=== PATIENT | female | born 1935 | race Caucasian/White ===

== ENCOUNTER 2016-09-18 14:22 | Inpatient (IN) ==
[2016-09-18] MEDS ORDERED: FUROSEMIDE 100 MG/10 ML VIAL IV STA (14:51)
[2016-09-18] MEDS ORDERED: FUROSEMIDE 100 MG/10 ML VIAL ONE (14:51)
--- NOTE | 2016-09-18 14:55 | EKG Report ---
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
[2016-09-18 15:41] LABS: Apearance,Urine Slightly Hazy (Clear); Bilirubin,Urine Negative (Negative); Blood, Urine Negative (Negative); Glucose,Urine (UA) Negative (Negative); Ketones,Urine Negative (Negative); Mucus,Urine Many /LPF (Occasional); Nitrite,Urine Negative (Negative); Protein,Urine 30 MG/DL; RBC,Urine 4 /HPF (0-4); Squamous Epithelial Cell,Urine Occasional /HPF (0-10); Urine Color Amber (Yellow); Urine Urobilinogen < 2.0 EU/DL (0.2-1.0); WBC,Urine 1 /HPF (0-6)
--- NOTE | 2016-09-18 15:50 | XRay Report ---
XR chest 1V portable Indication: SOB Comparison: Chest x-ray dated January 30, 2014 Technique: Single frontal view of the chest Findings: Continued cardiomegaly status post sternotomy with multiple surgical clips projecting about the heart/mediastinum. Low lung volumes are noted with bronchovascular crowding and continued elevation of the left hemidiaphragm. Suspect pulmonary edema as there are bilateral perihilar opacities. This alternatively could reflect atelectasis/bronchovascular crowding Small bilateral pleural fluid not excluded. Patient is status post reverse right glenohumeral prosthesis. IMPRESSION: As above. PROCEDURE INTERPRETED AT [facility] DEPARTMENT OF RADIOLOGY Final Report Signed by: Dr Tal Alves
--- NOTE | 2016-09-18 15:58 | Emergency Department Note ---
Emma Sweet Hilary, am scribing for, and in the presence of, Arian Bautista MD 14:51. Lily Sweet Phillip K, MD, personally performed the services described in this documentation, ascribed by Kristina Carter in my presence, and it is both accurate and complete [id number] . Arrival - Arrival ED Nursing Triage Note: Brought in by EMS c/o shortness of breath-onset earlier today. Reports some relief after Albuterol neb. Patient had shoulder surgery in [place] on Friday. Mode of Arrival: Stretcher Limitations: No Limitations Source: Patient, RN Notes Reviewed - History of Present Illness Onset (ago): hour(s) Date of Last Menstrual Period: hysterectomy <Arian Bautista - Last Filed: 09/18/16 15:58> <James Barillas - Last Filed: 09/18/16 17:52> - Arrival Chief Complaint: Shortness of Breath - History of Present Illness HPI Narrative: Pt is a 81 y/o white female brought into the ED via EMS with c/o of SOB which onset earlier today. Pt confirms SOB but denies swelling in legs, fever, cough, or chest pain. Pt has a PMHx of COPD and bypass x2. Patient had shoulder surgery in [place] on Friday. No other complaints or problems stated in the ED. (Kristina Carter) Pt is a 81 y/o white female brought into the ED via EMS with c/o of SOB which onset earlier today. Pt confirms SOB but denies swelling in legs, fever, cough, or chest pain. Pt has a PMHx of COPD and bypass x2. Patient had shoulder surgery in [place] on Friday. No other complaints or problems stated in the ED. (Arian Bautista) Allergies/Adverse Reactions: Allergies Allergy/AdvReac Type Severity Reaction Status Date / Time acetaminophen [From Lortab] Allergy Verified 12/07/15 10:26 codeine Allergy Verified 12/07/15 10:26 Diatrizoic Acid Allergy Verified 12/07/15 10:26 [From Hypaque] droperidol [From Innovar] Allergy Verified 12/07/15 10:26 fentanyl [From Innovar] Allergy Verified 12/07/15 10:26 hydrocodone [From Lortab] Allergy Verified 12/07/15 10:26 Hydromorphone [From Dilaudid] Allergy Verified 12/07/15 10:10 hydroxyzine [From Vistaril] Allergy Verified 12/07/15 10:26 iodine Allergy Verified 12/07/15 10:26 meperidine [From Demerol] Allergy Verified 12/07/15 10:10 methylene blue Allergy Verified 12/07/15 10:26 morphine Allergy Verified 12/07/15 10:26 nalbuphine [From Nubain] Allergy Verified 12/07/15 10:10 pentazocine [From Talwin] Allergy Verified 12/07/15 10:10 promethazine [From Phenergan] Allergy Verified 12/07/15 10:26 propoxyphene Allergy Verified 12/07/15 10:26 [From Darvocet-N 100] Trimethobenzamide Allergy Verified 12/07/15 10:26 [From Tigan] Home Medications: Home Medications Medication Instructions Recorded Confirmed Type Aspirin [Ecotrin] 81 mg PO QAM 12/07/15 09/18/16 History Beclomethasone 40 Mcg Inhaler 40 mcg INH BID 12/07/15 09/18/16 History [Qvar 40 Mcg] Donepezil [Aricept] 10 mg PO QAM 12/07/15 09/18/16 History Ezetimibe/Simvastatin 10-80 1 tablet PO BEDTIME 12/07/15 09/18/16 History [Vytorin 10-80] Loratadine [Claritin] 10 mg PO QPM 12/07/15 09/18/16 History Metoprolol Succinate Xl [Toprol Xl] 25 mg PO QAM 12/07/15 09/18/16 History Montelukast Tab [Singulair Tab] 10 mg PO BEDTIME 12/07/15 09/18/16 History Nitrofurantoin Macrocrystals 50 mg PO BEDTIME 12/07/15 09/18/16 History [Macrodantin] Potassium 99 mg PO BID 12/07/15 09/18/16 History Thyroid,Pork [[place] Thyroid] 30 mg PO QAM 12/07/15 09/18/16 History Tolterodine LA [Detrol LA] 4 mg PO QAM 12/07/15 09/18/16 History Budesonide/Formoterol 160-4.5 2 puff INH BID 03/07/16 09/18/16 History [Symbicort 160-4.5] HYDROcodone/ACETAMIN 7.5-325 1 tablet PO Q8HR PRN 03/07/16 09/18/16 History [[place] 7.5-325] Ipratropium/Albuterol Inhaler 1 puff INH QID 03/07/16 09/18/16 History [Combivent Respimat Inhaler] Melatonin 1 mg PO BEDTIME 03/07/16 09/18/16 History [place]-3 Fatty Acids [Fish Oil] 1,000 mg PO QPM 03/07/16 09/18/16 History Apixaban [Eliquis] 2.5 mg PO BID 09/18/16 09/18/16 History Calcium Carbonate/Vitamin D3 1 each PO QPM 09/18/16 09/18/16 History [Calcium 600 + Vit D Tablet] Cholecalciferol (Vitamin D3) 5,000 unit PO QAM 09/18/16 09/18/16 History [Vitamin D3] Diltiazem Tab [Cardizem Tab] 120 mg PO BID 09/18/16 09/18/16 History Furosemide Tab [Lasix Tab] 20 mg PO QAM PRN 09/18/16 09/18/16 History Isosorbide Mononitrate [Isosorbide 10 mg PO BID 09/18/16 09/18/16 History Mononitrate] Levocetirizine Dihydrochloride 5 mg PO QAM 09/18/16 09/18/16 History [Xyzal] Magnesium Chloride [Slow Mag] 64 mg PO QAM 09/18/16 09/18/16 History Metoprolol Succinate Xl [Toprol Xl] 12.5 - 25 mg PO QPM 09/18/16 09/18/16 History Mometasone 50 Mcg Nasal [place] 2 spray BOTH NARES DAILY PRN 09/18/16 09/18/16 History [Nasonex Nasal [place]] Multivitamin (Ocuvite) [Ocuvite] 1 tablet PO QAM 09/18/16 09/18/16 History Nitroglycerin Sl Tab [Nitrostat] 0.4 mg SL Q5M PRN 09/18/16 09/18/16 History Vitamin E Acetate [Vitamin E] 1,000 unit PO QPM 09/18/16 09/18/16 History Review of System - Review of System 12 point system: reviewed and no additional remarkable complaints except as stated - Review of System Constitutional: Absent: fever Respiratory: Present: respiratory distress (SOB). Absent: cough Cardiovascular: Absent: chest pain <Arian Bautista - Last Filed: 09/18/16 15:58> Medical,Surgical,& Family Hx - Medical History Cardio: History of: Hypertension, [place] No history of: Pacemaker Neurology: History of: Vertigo Endocrine: History of: Dyslipidemia Respiratory: History of: Asthma, Obstructive Sleep Apnea Genitourinary: History of: Bladder Problem, Kidney Stones Musculoskeletal: History of: Back/Neck Problems, Musculoskeletal Problems Hematology: History of: Anemia - Surgical History Cardiac Surgeries: Sugical HX of: Cardiac Catheterization, Cardiac Surgery (CABG ) Thoracic Surgeries: Surgical HX of;: Nephrectomy (LEFT) HEENT Surgeries: Surgical HX of: Thyroid Surgery, Tonsilectomy & Adenoidectomy Abdominal Surgeries: Surgical HX of: Appendectomy, Cholecystectomy, Colonoscopy , EGD Reproductive Surgeries: Surgical HX of;: Hysterectomy Patient denies;: Breast Surgery Orthopedic Surgeries: Surgical HX of;: Orthopedic Surgery (RIGHT SHOULDER) - Social History Smoking Status: Never smoker Frequency of Alcohol Use: None Type of Drug Use: None <Arian Bautista - Last Filed: 09/18/16 15:58> Exam - General General appearance: alert, in distress (Respiratory) - Head Head exam: Present: atraumatic, normocephalic - Eye Eye exam: Present: normal appearance, PERRL, EOMI - ENT ENT exam: Present: mucous membranes moist, TM's normal bilaterally. Absent: mucous membranes dry - Neck Neck exam: Present: full ROM, trachea midline. Absent: tenderness - Chest Chest inspection: Present: symmetric chest wall rise. Absent: tenderness - Respiratory Respiratory exam: Present: rales (rales bilaterally, worse on the right) - Cardiovascular Cardiovascular exam: Present: tachycardia, irregular rhythm, normal heart sounds. Absent: regular rate, normal rhythm, murmur, rubs, gallop - Abdominal Exam Abdominal exam: Present: soft, normal bowel sounds. Absent: distention, tenderness - Rectal Exam Rectal exam: Present: deferred - Extremities Exam Extremities exam: Present: full ROM. Absent: tenderness, pedal edema, calf tenderness - Back Exam Back exam: Present: full ROM. Absent: tenderness - Neurological Exam Neurological exam: Present: alert, oriented X3, CN II-XII intact. Absent: motor sensory deficit - Psychiatric Psychiatric exam: Present: normal affect, normal mood - Skin Skin exam: Present: warm, dry, intact, normal color. Absent: rash <Arian Bautista - Last Filed: 09/18/16 15:58> Vital Signs: Vital Signs Temperature 97.7 F 09/18/16 14:35 Pulse Rate 111 H 09/18/16 14:35 Respiratory Rate 28 H 09/18/16 16:30 Blood Pressure 126/80 09/18/16 14:35 O2 Sat by Pulse Oximetry 100 09/18/16 14:35 Course <Arian Bautista - Last Filed: 09/18/16 15:58> <James Barillas - Last Filed: 09/18/16 17:52> Course Narrative: This patient was evaluated with chest x-ray as well as EKG and lab work. She appear to be in volume overload of heart failure and I discussed her care with the hospitalist on-call who will come and see her for admission. She is still on a facemask but did respond to 60 mg of IV Lasix. (James Barillas) Results - EKG EKG results: interpreted by TANNER (Atrial fibrillation with nonspecific ST-T changes) - Diagnostic Findings Procedure: Chest x-ray: report reviewed by me (Congestive heart failure) <Arian Bautista - Last Filed: 09/18/16 15:58> - Labs CBC & BMP: 09/18/16 14:51 09/18/16 14:51 <James Barillas - Last Filed: 09/18/16 17:52> Disposition <Arian Bautista - Last Filed: 09/18/16 15:58> Case discussed with: patient Time of Disposition: 17:52 <James Barillas - Last Filed: 09/18/16 17:52> Clinical Impression: Congestive heart failure, Atrial fibrillation Disposition: Still a Patient Condition: Stable
[2016-09-18 16:04] LABS: Basophils % 0.5 % (0.0-0.8); Hematocrit 28.9 VOL% (35.7-47.0); Hemoglobin 9.4 GM/DL (12.0-16.0); Immature Granulocytes % 1.3 %; Immature Granulocytes Absolute 0.11 #; Lymphocytes # 0.9 10*3/uL (1.4-4.0); Lymphocytes % 10.4 % (21.3-54.2); Mean Corpuscular HGB Conc 32.5 GM/DL (32-36); Mean Corpuscular Hemoglobin 29 PG (27-34); Mean Corpuscular Volume 89.2 FL (87-102); Mean Platelet Volume 10.2 FL (9.6-12.0); Monocytes # 0.7 10*3/uL (0.11-0.8); Monocytes % 9.1 % (1.7-12.7); NRBC # 0.02 10*3/uL; Neutrophils # 6.4 10*3/uL (1.4-7.4); Neutrophils % 78.7 % (38.7-73.9); Platelet Count 214 T/CUMM (130-400); Red Blood Count 3.24 MC/CUMM (3.8-5.5); Red Cell Distribution Width 15.4 % (9.3-17.3); White Blood Count 8.2 T/CUMM (4-12)
[2016-09-18] MEDS ORDERED: DILTIAZEM 50 MG/10 ML VIAL IV STA (16:05)
[2016-09-18 16:15] LABS: D-Dimer 1.4 MG/L FEU; INR 1.1; PT Patient Result 11.4 SECS
[2016-09-18] MEDS ORDERED: DILTIAZEM 50 MG/10 ML VIAL IV ONE (16:22)
[2016-09-18 17:01] LABS: Potassium 3.9 MMOL/L (3.5-5.1)
[2016-09-18 17:03] LABS: Calcium 8.2 MG/DL (8.5-10.1)
[2016-09-18 17:04] LABS: Albumin 3.5 G/DL (3.4-5.0)
[2016-09-18 17:06] LABS: Magnesium 2.5 MG/DL (1.8-2.4); Osmolality,Calculated 285.4 MOS/KG (273-304)
[2016-09-18 17:14] LABS: Bilirubin,Total 0.9 MG/DL (0.2-1.0)
[2016-09-18 17:15] LABS: Troponin I Only 0.754 NG/ML (0.00-0.045)
--- NOTE | 2016-09-18 18:37 | Hospitalist History & Physical ---
Assessment and Plan (1) Congestive heart failure Status: Acute Assessment and plan: Chest x-ray reveals low lung volumes with bronchovascular crowding and continued elevation of the left hemidiaphragm. Small bilateral pleural fluid not excluded. BNP is pending. Patient will be admitted to telemetry and started on IV Lasix 40 mg twice daily. Consult cardiology. Current Visit: Yes (2) Atrial fibrillation Status: Acute Assessment and plan: Patient reports newly diagnosed atrial fibrillation. She is followed by Dr. Cam. She currently takes Eliquis, aspirin, Cardizem. We will continue home meds. Cardiology has been consulted. Current Visit: Yes (3) Hypertension Status: Acute Assessment and plan: This appears to be well controlled at the moment. Wood Getter has been consulted. Current Visit: Yes (4) Status post shoulder replacement Status: Acute Assessment and plan: Patient is 5 days status post reverse glenohumeral joint replacement. Current Visit: Yes History of Present Illness Chief complaint: Shortness of breath History of present illness: Ms. Rodriguez is a 81 year old female with a history significant for atrial fibrillation, hypertension, coronary artery disease with PCI, history of CABG 2 who presents to the [place] ED with complaints of shortness of breath since approximately noon today. Patient reports that she is 5 days status post first glenohumeral joint replacement at [facility]. She was discharged home with p.o. Lasix. She reports that the Lasix has been working and that she is surprised by this acute shortness of breath. She states that she began feeling short of breath this morning sometime before lunch and took an inhaler with little relief. After speaking with her daughter over the phone, and the patient and her decided to come to the ER. On admission, the patient is extremely short of breath with sats in the 70s and low 80s on 50% nonrebreather mask. She denies headache, palpitations, near syncope, pain on inspiration, numbness or tingling. Chest x-ray reveals low lung volumes with bronchovascular crowding elevation left hemidiaphragm. Preliminary labs are positive for hemoglobin 9.4 hematocrit 28.9 d-dimer 1.4 BUN 22 creatinine 0.7 glucose 167 troponin 0.754. Case was discussed with Dr. Barillas and Dr. Luna and it was agreed that the patient should be admitted to telemetry for the hospital medicine service for further evaluation and management. Cardiology will be consulted. Patient is a full code. It is of note that the patient admits history of rectocele and has requested manual evacuation. She notes that she has not had a bowel movement since . Home Medications Medication Instructions Recorded Confirmed Type Aspirin [Ecotrin] 81 mg PO QAM 12/07/15 09/18/16 History Beclomethasone 40 Mcg Inhaler 40 mcg INH BID 12/07/15 09/18/16 History [Qvar 40 Mcg] Donepezil [Aricept] 10 mg PO QAM 12/07/15 09/18/16 History Ezetimibe/Simvastatin 10-80 1 tablet PO BEDTIME 12/07/15 09/18/16 History [Vytorin 10-80] Loratadine [Claritin] 10 mg PO QPM 12/07/15 09/18/16 History Metoprolol Succinate Xl [Toprol Xl] 25 mg PO QAM 12/07/15 09/18/16 History Montelukast Tab [Singulair Tab] 10 mg PO BEDTIME 12/07/15 09/18/16 History Nitrofurantoin Macrocrystals 50 mg PO BEDTIME 12/07/15 09/18/16 History [Macrodantin] Potassium 99 mg PO BID 12/07/15 09/18/16 History Thyroid,Pork [[place] Thyroid] 30 mg PO QAM 12/07/15 09/18/16 History Tolterodine LA [Detrol LA] 4 mg PO QAM 12/07/15 09/18/16 History Budesonide/Formoterol 160-4.5 2 puff INH BID 03/07/16 09/18/16 History [Symbicort 160-4.5] HYDROcodone/ACETAMIN 7.5-325 1 tablet PO Q8HR PRN 03/07/16 09/18/16 History [[place] 7.5-325] Ipratropium/Albuterol Inhaler 1 puff INH QID 03/07/16 09/18/16 History [Combivent Respimat Inhaler] Melatonin 1 mg PO BEDTIME 03/07/16 09/18/16 History [place]-3 Fatty Acids [Fish Oil] 1,000 mg PO QPM 03/07/16 09/18/16 History Apixaban [Eliquis] 2.5 mg PO BID 09/18/16 09/18/16 History Calcium Carbonate/Vitamin D3 1 each PO QPM 09/18/16 09/18/16 History [Calcium 600 + Vit D Tablet] Cholecalciferol (Vitamin D3) 5,000 unit PO QAM 09/18/16 09/18/16 History [Vitamin D3] Diltiazem Tab [Cardizem Tab] 120 mg PO BID 09/18/16 09/18/16 History Furosemide Tab [Lasix Tab] 20 mg PO QAM PRN 09/18/16 09/18/16 History Isosorbide Mononitrate [Isosorbide 10 mg PO BID 09/18/16 09/18/16 History Mononitrate] Levocetirizine Dihydrochloride 5 mg PO QAM 09/18/16 09/18/16 History [Xyzal] Magnesium Chloride [Slow Mag] 64 mg PO QAM 09/18/16 09/18/16 History Metoprolol Succinate Xl [Toprol Xl] 12.5 - 25 mg PO QPM 09/18/16 09/18/16 History Mometasone 50 Mcg Nasal [place] 2 spray BOTH NARES DAILY PRN 09/18/16 09/18/16 History [Nasonex Nasal [place]] Multivitamin (Ocuvite) [Ocuvite] 1 tablet PO QAM 09/18/16 09/18/16 History Nitroglycerin Sl Tab [Nitrostat] 0.4 mg SL Q5M PRN 09/18/16 09/18/16 History Vitamin E Acetate [Vitamin E] 1,000 unit PO QPM 09/18/16 09/18/16 History Allergies Allergy/AdvReac Type Severity Reaction Status Date / Time acetaminophen [From Lortab] Allergy Verified 12/07/15 10:26 codeine Allergy Verified 12/07/15 10:26 Diatrizoic Acid Allergy Verified 12/07/15 10:26 [From Hypaque] droperidol [From Innovar] Allergy Verified 12/07/15 10:26 fentanyl [From Innovar] Allergy Verified 12/07/15 10:26 hydrocodone [From Lortab] Allergy Verified 12/07/15 10:26 Hydromorphone [From Dilaudid] Allergy Verified 12/07/15 10:10 hydroxyzine [From Vistaril] Allergy Verified 12/07/15 10:26 iodine Allergy Verified 12/07/15 10:26 meperidine [From Demerol] Allergy Verified 12/07/15 10:10 methylene blue Allergy Verified 12/07/15 10:26 morphine Allergy Verified 12/07/15 10:26 nalbuphine [From Nubain] Allergy Verified 12/07/15 10:10 pentazocine [From Talwin] Allergy Verified 12/07/15 10:10 promethazine [From Phenergan] Allergy Verified 12/07/15 10:26 propoxyphene Allergy Verified 12/07/15 10:26 [From Darvocet-N 100] Trimethobenzamide Allergy Verified 12/07/15 10:26 [From Tigan] Medical,Surgical,& Family Hx - Medical History Cardio: History of: CAD, Hypertension, [place] No history of: Pacemaker Neurology: History of: Vertigo Endocrine: History of: Dyslipidemia Respiratory: History of: Asthma, Obstructive Sleep Apnea Genitourinary: History of: Bladder Problem, Kidney Stones Musculoskeletal: History of: Back/Neck Problems, Musculoskeletal Problems Hematology: History of: Anemia - Surgical History Cardiac Surgeries: Sugical HX of: Cardiac Catheterization, Cardiac Surgery (CABG ) Thoracic Surgeries: Surgical HX of;: Nephrectomy (LEFT) HEENT Surgeries: Surgical HX of: Thyroid Surgery, Tonsilectomy & Adenoidectomy Abdominal Surgeries: Surgical HX of: Appendectomy, Cholecystectomy, Colonoscopy , EGD Reproductive Surgeries: Surgical HX of;: Hysterectomy Patient denies;: Breast Surgery Orthopedic Surgeries: Surgical HX of;: Orthopedic Surgery (RIGHT SHOULDER) - Family History Family History: Reports;: Family Cancer, Family Heart Disease, Family Hypertension - Social History Smoking Status: Never smoker Frequency of Alcohol Use: None Type of Drug Use: None Marital Status: Lives With:: Spouse Functional capacity: independent ambulation - Constitutional Constitutional: Present: fatigue, stops breathing during sleep. Absent: chills , frequent falls, headache(s), weakness - EENT Eyes: Absent: blurry vision, loss of vision Ears: Absent: decreased hearing, ear pain, tinnitus Nose, mouth and throat: Absent: headache(s), vertigo - Cardiovascular Cardiovascular: Present: dyspnea, dyspnea on exertion, lightheadedness. Absent : chest pain at rest, edema, radiating jaw, neck or arm pain, palpitations - Respiratory Respiratory: Present: dyspnea, dyspnea on exertion. Absent: cough, hemoptysis, wheezing, snoring, pain on inspiration - Gastrointestinal Gastrointestinal: Present: constipation. Absent: abdominal pain, diarrhea, hematemesis, hematochezia, loose stools, nausea, vomiting - Genitourinary Genitourinary: Absent: difficulty urinating, dysuria, flank pain - Musculoskeletal Musculoskeletal: Present: arthralgias. Absent: back pain, joint swelling - Neurological Neurological: Absent: abnormal gait, abnormal speech, headache(s), numbness, paresthesias, syncope - Psychiatric Psychiatric: Absent: anxiety, depression - Endocrine Endocrine: Absent: cold intolerance, heat intolerance - Hematologic/Lymphatic Hematologic/Lymphatic: Present: easy bleeding, easy bruising Exam - Constitutional General appearance: normal weight, no acute distress - Head Head exam: Present: normal inspection, normocephalic, atraumatic - Eye Eye exam: Present: EOMI. Absent: scleral icterus Pupils: Present: ROSE - ENT ENT exam: Present: normal exam, normal external ear exam - Neck Neck exam: Present: normal inspection. Absent: lymphadenopathy, thyromegaly - Respiratory Respiratory exam: Present: decreased breath sounds. Absent: rhonchi, wheezes - Cardiovascular Cardiovascular exam: Present: irregular rhythm, tachycardia. Absent: carotid bruit - GI/Abdominal GI/Abdominal exam: Present: normal bowel sounds, soft. Absent: ascites, distended, mass, tenderness, rebound - Extremities Exam Extremities exam: Present: normal inspection, normal capillary refill - Back Exam Back exam: Present: normal inspection. Absent: CVA tenderness (L), CVA tenderness (R) - Neurological Exam Neurological exam: Present: alert, oriented X3, CN II-XII intact - Psychiatric Psychiatric exam: Present: normal affect, normal mood - Skin Skin exam: Present: normal color, warm, dry. Absent: cyanosis, erythema Results - Labs CBC & BMP: 09/18/16 14:51 09/18/16 14:51 Lab Results: I have reviewed the past 24 hour labs - EKG EKG results: interpreted by NICOLED - Diagnostic Findings Procedure: Chest x-ray: image reviewed by me, report reviewed by me
[2016-09-18] MEDS ORDERED: ONDANSETRON 4 MG/2 ML VIAL IV PRN (19:00)
[2016-09-18] MEDS ORDERED: ZALEPLON 5 MG CAPSULE PO PRN (19:00)
[2016-09-18] MEDS ORDERED: MAGNESIUM SULF RIDER 4 GM in PREMIX 1 EACH IV PRN (19:07)
[2016-09-18] MEDS ORDERED: MAGNESIUM SULF RIDER 2 GM in PREMIX 1 EACH IV PRN (19:07)
[2016-09-18] MEDS ORDERED: ENOXAPARIN 40 MG/0.4 ML SYRINGE SUBCUT SCH (19:30)
[2016-09-18] MEDS ORDERED: MOMETASONE 50 MCG NASAL SPRAY 17 GM BOTTLE BOTH NARES PRN (20:06)
[2016-09-18 20:36] LABS: VLDL CHOLESTEROL 36.4 MG/DL
[2016-09-18] MEDS ORDERED: NITROFURANTOIN MACROCRYSTALS 50 MG CAPSULE PO SCH (21:00)
[2016-09-18] MEDS: BUDESONIDE/FORMOTEROL 160-4.5 INHALER 6 GM INH SCH (22:24)
[2016-09-18] MEDS: BECLOMETHASONE 40 MCG/PUFF INHALER 8.7 GM INH SCH (22:24)
[2016-09-18] MEDS: MONTELUKAST 10 MG TABLET PO SCH (22:25)
[2016-09-18] MEDS: DILTIAZEM 60 MG TABLET PO SCH (22:25)
[2016-09-18] MEDS: ISOSORBIDE MONONITRATE 20 MG TABLET PO SCH (22:26)
[2016-09-18] MEDS: EZETIMIBE PO SCH (22:26)
[2016-09-18] MEDS: MELATONIN 3 MG TABLET PO SCH (22:26)
[2016-09-18] MEDS: POTASSIUM GLUCONATE 500 MG TABLET PO SCH (22:26)
[2016-09-18] MEDS: LACTULOSE 20 GM/30 ML UDCUP PO PRN (22:26)
[2016-09-18] MEDS: SIMVASTATIN PO SCH (22:26)
[2016-09-18] MEDS: APIXABAN 2.5 MG TABLET PO SCH (22:27)
[2016-09-18] MEDS: DOCUSATE SODIUM 100 MG CAPSULE PO PRN (22:27)
[2016-09-18] MEDS: LORATADINE 10 MG TABLET PO SCH (22:27)
[2016-09-19] MEDS ORDERED: ALBUTEROL/IPRATROPIUM 3 ML NEB RESP TX PRN (06:44)
[2016-09-19 06:47] LABS: Basophils % 0.4 % (0.0-0.8); Hematocrit 24.4 VOL% (35.7-47.0); Hemoglobin 8.1 GM/DL (12.0-16.0); Immature Granulocytes % 0.9 %; Immature Granulocytes Absolute 0.05 #; Lymphocytes % 18.6 % (21.3-54.2); Mean Corpuscular HGB Conc 33.2 GM/DL (32-36); Mean Corpuscular Hemoglobin 30 PG (27-34); Mean Corpuscular Volume 89.4 FL (87-102); Mean Platelet Volume 10.5 FL (9.6-12.0); Monocytes # 0.8 10*3/uL (0.11-0.8); Monocytes % 13.8 % (1.7-12.7); NRBC # 0.02 10*3/uL; Neutrophils # 3.7 10*3/uL (1.4-7.4); Neutrophils % 66.3 % (38.7-73.9); Platelet Count 171 T/CUMM (130-400); Red Blood Count 2.73 MC/CUMM (3.8-5.5); Red Cell Distribution Width 15.5 % (9.3-17.3); White Blood Count 5.6 T/CUMM (4-12)
[2016-09-19 07:35] LABS: Calcium 8.1 MG/DL (8.5-10.1); Magnesium 2.3 MG/DL (1.8-2.4); Osmolality,Calculated 288.1 MOS/KG (273-304); Potassium 3.8 MMOL/L (3.5-5.1)
[2016-09-19] MEDS: FUROSEMIDE 40 MG/4 ML VIAL IV SCH ×2 (08:27→17:42)
[2016-09-19] MEDS: BECLOMETHASONE 40 MCG/PUFF INHALER 8.7 GM INH SCH ×2 (08:35→22:01)
[2016-09-19] MEDS: BUDESONIDE/FORMOTEROL 160-4.5 INHALER 6 GM INH SCH ×2 (08:36→22:01)
[2016-09-19] MEDS ORDERED: METOPROLOL SUCCINATE XL 25 MG TABLET PO SCH ×2 (09:00→19:00)
[2016-09-19] MEDS ORDERED: SODIUM CHLORIDE 0.9% 250 ML IV PRN (09:24)
[2016-09-19] MEDS ORDERED: methylPREDNISolone SOD SUC 125 MG/2 ML VIAL IV ONE (10:26)
[2016-09-19] MEDS ORDERED: diphenhydrAMINE 50 MG/1 ML VIAL IV ONE (10:27)
[2016-09-19] MEDS: methylPREDNISolone SOD SUC 125 MG/2 ML VIAL IV SCH ×2 (10:53→17:49)
[2016-09-19] MEDS: MULTIVITAMIN (OCUVITE) TABLET PO SCH (11:10)
[2016-09-19] MEDS: POTASSIUM GLUCONATE 500 MG TABLET PO SCH ×2 (11:11→22:01)
[2016-09-19] MEDS: DILTIAZEM 60 MG TABLET PO SCH ×2 (11:11→21:59)
[2016-09-19] MEDS: DONEPEZIL 10 MG TABLET PO SCH (11:12)
[2016-09-19] MEDS: ASPIRIN EC 81 MG TABLET PO SCH (11:12)
[2016-09-19] MEDS: APIXABAN 2.5 MG TABLET PO SCH ×2 (11:12→22:01)
[2016-09-19] MEDS: CETIRIZINE 10 MG TABLET PO SCH (11:13)
[2016-09-19] MEDS: TOLTERODINE LA 4 MG CAPSULE PO SCH (11:13)
[2016-09-19] MEDS: MAGNESIUM CHLORIDE 64 MG TABLET PO SCH (11:13)
[2016-09-19] MEDS: CHOLECALCIFEROL 1,000 UNIT TABLET PO SCH (11:14)
[2016-09-19] MEDS: PANTOPRAZOLE 40 MG TABLET PO SCH (11:14)
[2016-09-19] MEDS: ALBUTEROL/IPRATROPIUM 3 ML NEB RESP TX SCH ×3 (11:16→19:26)
[2016-09-19] MEDS: THYROID 60 MG TABLET PO SCH (11:16)
[2016-09-19] MEDS: ISOSORBIDE MONONITRATE 20 MG TABLET PO SCH ×2 (11:16→21:59)
--- NOTE | 2016-09-19 11:31 | Physician Query Form ---
CLICK EDIT DOCUMENT TO SELECT QUERY ANSWER --> OK --> SIGN Christina Trejo RN, CCDS Certified Clinical Mattress Weaver W) [phone] (f) [phone] [email or web address] PROVIDERS: Make your selection(s) from the choices in EACH section by typing an "x" and enter comments in the comment section. Please use your independent medical judgment in providing your response. This request does not imply that any particular answer is desired or expected. CLINICAL INDICATORS: (Providers should not edit this section) The medical record indicates that the patient was admitted with AF (new diagnosed AF) and Status post shoulder replacement five days ago. Based on the above, could you clarify the appropriate diagnosis, if significant , that supports the above abnormalities and additional evaluation, monitoring, and/or treatment rendered: ( ) AF is a late post-op complication from the shoulder surgery (x ) AF not associated with the recent shoulder surgery ( ) Other, please specify: ( ) Clinically unable to determine COMMENTS: PLEASE ALSO DOCUMENT RESPONSE IN PROGRESS NOTES AND/OR DISCHARGE SUMMARY Use of terms such as suspected, likely, or probable (associated with a specific diagnosis that is being evaluated, monitored, or treated as if it exists) are acceptable and can be restated in the discharge summary if not ruled out. MTDD
--- NOTE | 2016-09-19 11:31 | Physician Query Form ---
CLICK EDIT DOCUMENT TO SELECT QUERY ANSWER --> OK --> SIGN Christina Trejo RN, CCDS Certified Clinical Beaming Machine Operator W) [phone] (f) [phone] [email or web address] PROVIDERS: Make your selection(s) from the choices in EACH section by typing an "x" and enter comments in the comment section. Please use your independent medical judgment in providing your response. This request does not imply that any particular answer is desired or expected. CLINICAL INDICATORS: (Providers should not edit this section) The medical record indicates that the patient was admitted with CHF, respiratory rate 28, respiratory distress, and " On admission, the patient is extremely short of breath with sats in the 70s and low 80s on 50% nonrebreather mask". If possible, please further clarify the type and acuity of respiratory diagnosis : ACUITY: ( ) Acute ( ) Chronic ( x) Acute on Chronic TYPE: ( x) Respiratory failure with hypoxia ( ) Respiratory failure with hypercapnia ( ) Respiratory Arrest ( ) Postprocedural/postoperative respiratory failure ( ) Respiratory Insufficiency ( ) ARDS (Adult/Acute Respiratory Distress Syndrome) ( ) Other, please specify: ( ) Clinically unable to determine Recognized criteria for respiratory failure PH <7.35 or >7.45 PO2 <60 PCO2 >50 RR >24 O2 Sat <90% on RA or <95% on O2 Use of accessory muscles Unable to speak in full sentences Intubation is not required COMMENTS: PLEASE ALSO DOCUMENT RESPONSE IN PROGRESS NOTES AND/OR DISCHARGE SUMMARY Use of terms such as suspected, likely, or probable (associated with a specific diagnosis that is being evaluated, monitored, or treated as if it exists) are acceptable and can be restated in the discharge summary if not ruled out. MTDD
--- NOTE | 2016-09-19 12:21 | Cardiology Consult Note ---
Assessment and Plan - Time spent with patient Time spent with patient: Greater than 30 minutes (due to assessment, plan, documentation, and lengthy interview) (1) Congestive heart failure Status: Acute Assessment and plan: SEE PLAN OF CARE LISTED BELOW Current Visit: Yes (2) Atrial fibrillation Status: Acute Assessment and plan: SEE PLAN OF CARE LISTED BELOW Current Visit: Yes (3) Hypertension Status: Chronic Assessment and plan: SEE PLAN OF CARE LISTED BELOW Current Visit: Yes (4) Status post shoulder replacement Status: Chronic Assessment and plan: SEE PLAN OF CARE LISTED BELOW Current Visit: Yes (5) Coronary artery disease Status: Chronic Assessment and plan: SEE PLAN OF CARE LISTED BELOW Current Visit: Yes (6) History of coronary artery bypass graft Status: Chronic Assessment and plan: SEE PLAN OF CARE LISTED BELOW Current Visit: Yes (7) Hyperlipidemia Status: Chronic Assessment and plan: SEE PLAN OF CARE LISTED BELOW Current Visit: Yes (8) COPD (chronic obstructive pulmonary disease) Status: Chronic Assessment and plan: SEE PLAN OF CARE LISTED BELOW Current Visit: Yes (9) Elevated troponin Status: Acute Assessment and plan: SEE PLAN OF CARE LISTED BELOW Current Visit: Yes (10) Anemia Status: Acute Assessment and plan: SEE PLAN OF CARE LISTED BELOW Current Visit: Yes History of Present Illness - Data of Consult Patient: known to practice within the last 3 years (patient of Dr. Cam) Consult date: 09/18/16 Requesting Physician: Trey Perez Primary care physician: Kendal Ventura - Consult Narrative Reason for consult: CHF, elevated troponin, Afib History of present illness: CONSERVATION SPECIALIST: DR. CAM PCP: MARIANNE WHITLEY Ms. 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 She has a history of ischemic heart disease with 2 prior coronary artery bypass grafting surgeries, hypertension, hyperlipidemia, COPD, obstructive sleep apnea, prior nephrectomy, hypothyroidism, fibrosis of the lung. She is a lifelong non-smoker. She is status post CABG on 06/08/96 with VG to LAD and VG to the circumflex. Her initial bypass surgery was 8 years prior to the redo surgery in 1996. Last heart catheterization was performed 01/28/[address] Cam. At that time, she was found to have 2 patent grafts with 40- 50% ostial narrowing. She has been recently diagnosed with atrial fibrillation approximately 1 month ago. She presented to our emergency department on 09/18/16 with complaints of shortness of breath that began around noon the day of admission. She is now 6 days post op from first glenohumeral joint replacement at [facility]. On admission, she had oxygen saturations in the 70s-80s on 50% face mask. Chest x-ray revealed low lung volumes with bronchovascular crowding and elevation of the left hemidiaphragm. She was admitted for further evaluation and treatment. We were consulted to see her for CHF and elevated troponin. Initial troponin 0.754 with peak of 0.898. An echocardiogram is pending. D-Dimer was 1.4 on admission. Today, she has undergone a CT of the chest for PE protocol and we are awaiting these results. She is on appropriate therapy for her acute CHF including diuretic and beta nalini. Her Diltiazem and Eliquis have been resumed for her atrial fibrillation. She had some RVR on admission, but rates are better controlled at this time. ASSESSMENT/PLAN: 1. CONGESTIVE HEART FAILURE - BNP 1199 on admission with diffuse crackles anteriorly and posteriorly. Creatinine 0.9. She is being diuresed. An echocardiogram is pending. She does have some mild lower extremity edema. Previous EF in 2014 was 65%. 2. ATRIAL FIBRILLATION - Unsure whether this is chronic or paroxysmal. She was recently diagnosed with this approximately 1 month ago. We have resumed her Cardizem PO and Eliquis for anticoagulation. We will continue to monitor her rates. Will follow CBC. No signs of overt bleeding at this time but she is anemic. We will monitor. 3. HYPERTENSION - Currently well controlled. Will continue to monitor and adjust medications accordingly during hospitalization. 4. S/P RIGHT SHOULDER REPLACEMENT - This was done at [facility] in [place], [place] 6 days ago. 5. CORONARY ARTERY DISEASE - She is status post CABG on 06/08/96 with VG to LAD and VG to the circumflex. Her initial bypass surgery was 8 years prior to the redo surgery in 1996. Last heart catheterization was performed 01/28/[address] Cam. At that time, she was found to have 2 patent grafts with 40-50% ostial narrowing. 6. HISTORY OF CABG - She is status post CABG on 06/08/96 with VG to LAD and VG to the circumflex. Her initial bypass surgery was 8 years prior to the redo surgery in 1996. Last heart catheterization was performed 01/28/[address] Cam. At that time, she was found to have 2 patent grafts with 40-50% ostial narrowing. 7. HYPERLIPIDEMIA - Continue lipid-lowering agent. 8. COPD - O2 PRN. Her home medications have been resumed. Hospital medicine is following. 9. ELEVATED TROPONIN - Likely due to demand ischemia from her acute CHF. D- Dimer is also elevated. We are awaiting the results of her chest CT. She may require further evaluation with repeat heart catheterization at some point, but at this time we need to manage her acute events and further evaluate the source of her anemia. 10. ANEMIA - H&H 8.1 & 24.4. GI has been consulted. No signs of overt bleeding. Stools for occult blood pending. Dr. Jo to follow with further plan and addendum. CC: Rosa Maria Wood MD - Home Medications and Allergies Home Medications: Home Medications Medication Instructions Recorded Confirmed Type Aspirin [Ecotrin] 81 mg PO QAM 12/07/15 09/18/16 History Beclomethasone 40 Mcg Inhaler 40 mcg INH BID 12/07/15 09/18/16 History [Qvar 40 Mcg] Donepezil [Aricept] 10 mg PO QAM 12/07/15 09/18/16 History Ezetimibe/Simvastatin 10-80 1 tablet PO BEDTIME 12/07/15 09/18/16 History [Vytorin 10-80] Loratadine [Claritin] 10 mg PO QPM 12/07/15 09/18/16 History Montelukast Tab [Singulair Tab] 10 mg PO BEDTIME 12/07/15 09/18/16 History Nitrofurantoin Macrocrystals 50 mg PO BEDTIME 12/07/15 09/18/16 History [Macrodantin] Potassium 99 mg PO BID 12/07/15 09/18/16 History Thyroid,Pork [[place] Thyroid] 30 mg PO QAM 12/07/15 09/18/16 History Tolterodine LA [Detrol LA] 4 mg PO QAM 12/07/15 09/18/16 History Budesonide/Formoterol 160-4.5 2 puff INH BID 03/07/16 09/18/16 History [Symbicort 160-4.5] HYDROcodone/ACETAMIN 7.5-325 1 tablet PO Q8HR PRN 03/07/16 09/18/16 History [[place] 7.5-325] Ipratropium/Albuterol Inhaler 1 puff INH QID 03/07/16 09/18/16 History [Combivent Respimat Inhaler] Melatonin 1 mg PO BEDTIME 03/07/16 09/18/16 History [place]-3 Fatty Acids [Fish Oil] 1,000 mg PO QPM 03/07/16 09/18/16 History Apixaban [Eliquis] 2.5 mg PO BID 09/18/16 09/18/16 History Calcium Carbonate/Vitamin D3 1 each PO QPM 09/18/16 09/18/16 History [Calcium 600 + Vit D Tablet] Cholecalciferol (Vitamin D3) 5,000 unit PO QAM 09/18/16 09/18/16 History [Vitamin D3] Diltiazem Tab [Cardizem Tab] 120 mg PO BID 09/18/16 09/18/16 History Furosemide Tab [Lasix Tab] 20 mg PO QAM PRN 09/18/16 09/18/16 History Isosorbide Mononitrate [Isosorbide 10 mg PO BID 09/18/16 09/18/16 History Mononitrate] Levocetirizine Dihydrochloride 5 mg PO QAM 09/18/16 09/18/16 History [Xyzal] Magnesium Chloride [Slow Mag] 64 mg PO QAM 09/18/16 09/18/16 History Metoprolol Succinate Xl [Toprol Xl] 12.5 mg PO BID 09/18/16 09/18/16 History Mometasone 50 Mcg Nasal [place] 2 spray BOTH NARES DAILY PRN 09/18/16 09/18/16 History [Nasonex Nasal [place]] Multivitamin (Ocuvite) [Ocuvite] 1 tablet PO QAM 09/18/16 09/18/16 History Nitroglycerin Sl Tab [Nitrostat] 0.4 mg SL Q5M PRN 09/18/16 09/18/16 History Vitamin E Acetate [Vitamin E] 1,000 unit PO QPM 09/18/16 09/18/16 History Allergies/Adverse Reactions: Allergies Allergy/AdvReac Type Severity Reaction Status Date / Time acetaminophen [From Lortab] Allergy Verified 12/07/15 10:26 codeine Allergy Verified 12/07/15 10:26 Diatrizoic Acid Allergy Verified 12/07/15 10:26 [From Hypaque] droperidol [From Innovar] Allergy Verified 12/07/15 10:26 fentanyl [From Innovar] Allergy Verified 12/07/15 10:26 hydrocodone [From Lortab] Allergy Verified 12/07/15 10:26 Hydromorphone [From Dilaudid] Allergy Verified 12/07/15 10:10 hydroxyzine [From Vistaril] Allergy Verified 12/07/15 10:26 iodine Allergy Verified 12/07/15 10:26 meperidine [From Demerol] Allergy Verified 12/07/15 10:10 methylene blue Allergy Verified 12/07/15 10:26 morphine Allergy Verified 12/07/15 10:26 nalbuphine [From Nubain] Allergy Verified 12/07/15 10:10 pentazocine [From Talwin] Allergy Verified 12/07/15 10:10 promethazine [From Phenergan] Allergy Verified 12/07/15 10:26 propoxyphene Allergy Verified 12/07/15 10:26 [From Darvocet-N 100] Trimethobenzamide Allergy Verified 12/07/15 10:26 [From Tigan] Review of systems: - Constitutional: Present: fatigue, stops breathing during sleep, As per HPI. Absent: anorexia, chills, daytime sleepiness, excessive sweating, fever(s), frequent falls, headache(s), increased appetite, lethargy, malaise, night sweats , weakness, weight gain, weight loss. - EENT Eyes: Present: As per HPI. Absent: blurry vision, diplopia, loss of vision Ears: Present: As per HPI. Absent: decreased hearing, ear discharge, ear pain Nose, mouth and throat: Present: As per HPI. Absent: dysphagia, epistaxis, headache(s), hoarseness, lip swelling, nasal congestion, neck mass, neck pain, sinus pressure, sore throat, throat swelling, tongue swelling, vertigo - Cardiovascular: Present: dyspnea, dyspnea on exertion, lightheadedness, as per HPI. Absent: chest pain at rest, chest pain with activity, edema, claudication, diaphoresis, radiating jaw, neck or arm pain, orthopnea, palpitations, PND - Respiratory: Present: dyspnea, dyspnea on exertion, as per HPI. Absent: cough , hemoptysis, wheezing, snoring, pain on inspiration - Gastrointestinal: Present: constipation, As per HPI. Absent: abdominal pain, bloating, change in bowel habits, diarrhea, heartburn, hematemesis, hematochezia , loose stools, melena, nausea, vomiting - Genitourinary: Present: As per HPI. Absent: difficulty urinating, dysuria, flank pain, hematuria, nocturia, urinary frequency, urinary incontinence - Musculoskeletal: Present: arthralgias, As per HPI. Absent: back pain, joint swelling, limited range of motion, muscle cramps, muscle weakness, myalgias - Neurological: Present: As per HPI. Absent: abnormal gait, abnormal speech, behavioral changes, confusion, convulsions, disequilibrium, dizziness, focal weakness, frequent falls, headache(s), memory loss, numbness, paresthesias, radicular pain, syncope, tremor(s) - Psychiatric: Present: As per HPI. Absent: anxiety, confusion, depression, panic attacks - Endocrine: Present: As per HPI. Absent: cold intolerance, fatigue, heat intolerance, polydipsia, polyphagia - Hematologic/Lymphatic: Present: easy bleeding, easy bruising, As per HPI. Absent: lymphadenopathy Medical,Surgical,& Family Hx - Medical History Cardio: History of: CAD, Hypertension, [place] No history of: Pacemaker Neurology: History of: Vertigo Endocrine: History of: Dyslipidemia Respiratory: History of: Asthma, Obstructive Sleep Apnea Genitourinary: History of: Bladder Problem, Kidney Stones Musculoskeletal: History of: Back/Neck Problems, Musculoskeletal Problems Hematology: History of: Anemia - Surgical History Cardiac Surgeries: Sugical HX of: Cardiac Catheterization, Cardiac Surgery (CABG ) Thoracic Surgeries: Surgical HX of;: Nephrectomy (LEFT) HEENT Surgeries: Surgical HX of: Thyroid Surgery, Tonsilectomy & Adenoidectomy Abdominal Surgeries: Surgical HX of: Appendectomy, Cholecystectomy, Colonoscopy , EGD Reproductive Surgeries: Surgical HX of;: Hysterectomy Patient denies;: Breast Surgery Orthopedic Surgeries: Surgical HX of;: Orthopedic Surgery (RIGHT SHOULDER) - Family History Family History: Reports;: Family Cancer, Family Heart Disease, Family Hypertension - Social History Smoking Status: Never smoker Frequency of Alcohol Use: None Type of Drug Use: None Marital Status: Lives With:: Spouse Functional capacity: independent ambulation Physical Examination Vital Signs Temp Pulse Resp BP Pulse Ox 97.7 F 111 H 32 H 126/80 100 09/18/16 14:35 09/18/16 14:35 09/18/16 14:35 09/18/16 14:35 09/18/16 14:35 Other: General appearance: Pleasant and cooperative. Overweight. No acute distress. - Head Head exam: Present: normal inspection, normocephalic, atraumatic. Absent: hematoma, laceration - Eye Eye exam: Present: EOMI. Absent: conjunctival injection, nystagmus, periorbital swelling, scleral icterus, laceration to eyelids Pupils: Present: PERRL. Absent: constricted, dilated, fixed, irregular, unequal - ENT ENT exam: Present: normal exam, normal external ear exam - Neck Neck exam: Present: normal inspection. Absent: lymphadenopathy, meningismus, tenderness, thyromegaly - Respiratory Respiratory exam: Present: diffuse crackles anteriorly and posteriorly, mild to moderate conversational dyspnea. Absent: accessory muscle use, chest wall tenderness - Cardiovascular Cardiovascular exam: Present: Irregular rate and rhythm. Absent: carotid bruit , gallop, JVD, rubs, murmur - GI/Abdominal GI/Abdominal exam: Present: normal bowel sounds, soft. Absent: distended, firm , guarding, hernia, mass, tenderness, rebound. - Extremities Exam Extremities exam: Present: normal inspection, normal capillary refill. Upper extremity pulses 2+. Lower extremity pulses 2+. 1+ BLE edema. Absent: calf tenderness -Musculoskeletal Exam Musculoskeletal: Present: No Fluid Collection, No Pain, Normal Range of Motion - Back Exam Back exam: Present: normal inspection. Absent: muscle spasm, vertebral tenderness - Neurological Exam Neurological exam: Present: alert, oriented X3, grossly intact without resting or essential tremor - Psychiatric Psychiatric exam: Present: normal affect, normal mood - Skin Skin exam: Present: normal color, warm, dry, intact. Absent: cyanosis, diaphoretic, rash, urticaria Result/EKG - Labs CBC & BMP: 09/19/16 04:00 09/19/16 06:59 Lab Results: I have reviewed the past 24 hour labs Labs: Laboratory Results - last 24 hr 09/18/16 09/18/16 09/18/16 14:51 14:51 15:12 WBC 8.2 RBC 3.24 L Hgb 9.4 L Hct 28.9 L MCV 89.2 MCH 29 MCHC 32.5 RDW 15.4 Plt Count 214 MPV 10.2 Neut % (Auto) 78.7 H Lymph % (Auto) 10.4 L [place] % (Auto) 9.1 Eos % (Auto) 0.0 Baso % (Auto) 0.5 Neut # (Auto) 6.4 Lymph # (Auto) 0.9 L [place] # (Auto) 0.7 Eos # (Auto) 0.0 Baso # (Auto) 0.0 Immature Gran % 1.3 Nucleated RBC % 0.2 Immature Gran # 0.11 Nucleated RBCs # 0.02 INR 1.1 PT Patient/Control Mix 11.4 D-Dimer, Quantitative 1.4 Sodium 140 Potassium 3.9 Chloride 103 Carbon Dioxide 26 Anion Gap 14.9 BUN 22 H Creatinine 0.86 GFR Calculation 52 BUN/Creatinine Ratio 25.00 H Glucose 167 H Calculated Osmolality 285.4 Calcium 8.2 L Magnesium 2.5 H Total Bilirubin 0.90 AST 35 ALT 14 Alkaline Phosphatase 102 Troponin I 0.754 H B-Natriuretic Peptide Total Protein 6.0 L Albumin 3.5 Globulin 2.5 Albumin/Globulin Ratio 1.4 Triglycerides Cholesterol LDL Cholesterol VLDL Cholesterol HDL Cholesterol Heart Disease Risk Ratio Urine Color Urine Appearance Urine pH Ur Specific [place] Urine Protein Urine Glucose (UA) Urine Ketones Urine Blood Urine Nitrate Urine Bilirubin Urine Urobilinogen Urine Leukocytes Urine RBC Urine WBC Ur Squamous Epith Cells Urine Mucus Ur Culture Indicated? Blood Type 09/18/16 09/18/16 09/18/16 15:12 19:59 19:59 WBC RBC Hgb Hct MCV MCH MCHC RDW Plt Count MPV Neut % (Auto) Lymph % (Auto) [place] % (Auto) Eos % (Auto) Baso % (Auto) Neut # (Auto) Lymph # (Auto) [place] # (Auto) Eos # (Auto) Baso # (Auto) Immature Gran % Nucleated RBC % Immature Gran # Nucleated RBCs # INR PT Patient/Control Mix D-Dimer, Quantitative Sodium Potassium Chloride Carbon Dioxide Anion Gap BUN Creatinine GFR Calculation BUN/Creatinine Ratio Glucose Calculated Osmolality Calcium Magnesium Total Bilirubin AST ALT Alkaline Phosphatase Troponin I B-Natriuretic Peptide 1199 H Total Protein Albumin Globulin Albumin/Globulin Ratio Triglycerides 182 H Cholesterol 99 LDL Cholesterol 48.0 VLDL Cholesterol 36.4 HDL Cholesterol 33 L Heart Disease Risk Ratio 3.00 Urine Color [place] Urine Appearance Slightly hazy Urine pH 5.0 Ur Specific [place] 1.020 Urine Protein 30 Urine Glucose (UA) Negative Urine Ketones Negative Urine Blood Negative Urine Nitrate Negative Urine Bilirubin Negative Urine Urobilinogen < 2.0 H Urine Leukocytes Negative Urine RBC 4 Urine WBC 1 Ur Squamous Epith Cells Occasional Urine Mucus Many Ur Culture Indicated? Not indicated Blood Type 09/18/16 09/18/16 09/19/16 19:59 22:21 04:00 WBC 5.6 D RBC 2.73 L Hgb 8.1 L Hct 24.4 L MCV 89.4 MCH 30 MCHC 33.2 RDW 15.5 Plt Count 171 D MPV 10.5 Neut % (Auto) 66.3 Lymph % (Auto) 18.6 L [place] % (Auto) 13.8 H Eos % (Auto) 0.0 Baso % (Auto) 0.4 Neut # (Auto) 3.7 Lymph # (Auto) 1.0 L [place] # (Auto) 0.8 Eos # (Auto) 0.0 Baso # (Auto) 0.0 Immature Gran % 0.9 Nucleated RBC % 0.4 Immature Gran # 0.05 Nucleated RBCs # 0.02 INR PT Patient/Control Mix D-Dimer, Quantitative Sodium Potassium Chloride Carbon Dioxide Anion Gap BUN Creatinine GFR Calculation BUN/Creatinine Ratio Glucose Calculated Osmolality Calcium Magnesium Total Bilirubin AST ALT Alkaline Phosphatase Troponin I 0.898 H 0.866 H B-Natriuretic Peptide Total Protein Albumin Globulin Albumin/Globulin Ratio Triglycerides Cholesterol LDL Cholesterol VLDL Cholesterol HDL Cholesterol Heart Disease Risk Ratio Urine Color Urine Appearance Urine pH Ur Specific [place] Urine Protein Urine Glucose (UA) Urine Ketones Urine Blood Urine Nitrate Urine Bilirubin Urine Urobilinogen Urine Leukocytes Urine RBC Urine WBC Ur Squamous Epith Cells Urine Mucus Ur Culture Indicated? Blood Type 09/19/16 09/19/16 09/19/16 06:59 06:59 Unknown WBC RBC Hgb Hct MCV MCH MCHC RDW Plt Count MPV Neut % (Auto) Lymph % (Auto) [place] % (Auto) Eos % (Auto) Baso % (Auto) Neut # (Auto) Lymph # (Auto) [place] # (Auto) Eos # (Auto) Baso # (Auto) Immature Gran % Nucleated RBC % Immature Gran # Nucleated RBCs # INR PT Patient/Control Mix D-Dimer, Quantitative Sodium 142 Potassium 3.8 Chloride 102 Carbon Dioxide 30 Anion Gap 13.8 BUN 20 H Creatinine 0.90 GFR Calculation 49 BUN/Creatinine Ratio 22.00 H Glucose 149 H Calculated Osmolality 288.1 Calcium 8.1 L Magnesium 2.3 Total Bilirubin AST ALT Alkaline Phosphatase Troponin I 0.735 H B-Natriuretic Peptide Total Protein Albumin Globulin Albumin/Globulin Ratio Triglycerides Cholesterol LDL Cholesterol VLDL Cholesterol HDL Cholesterol Heart Disease Risk Ratio Urine Color Urine Appearance Urine pH Ur Specific [place] Urine Protein Urine Glucose (UA) Urine Ketones Urine Blood Urine Nitrate Urine Bilirubin Urine Urobilinogen Urine Leukocytes Urine RBC Urine WBC Ur Squamous Epith Cells Urine Mucus Ur Culture Indicated? Blood Type O POSITIVE - EKG EKG results: interpreted by me EKG shows: atrial fibrillation
--- NOTE | 2016-09-19 12:21 | Gastrointestinal Consult Note ---
Assessment and Plan (1) Anemia Status: Acute Assessment and plan: 09/19-admitted with shortness of breath, noted to have drop in hemoglobin from admission at 9.4-8.1 without overt bleeding. No prior history of GI bleeding per patient. Recent upper and lower endoscopy in 2016. Findings noted below. Stools for occult blood pending. Plan an addendum to followed by Dr. Taylor. Current Visit: Yes History of Present Illness Chief complaint: Anemia History of present illness: Ms. Rodriguez is a 81 year old female who was admitted to the hospital on yesterday with reports of shortness of breath. Patient has a history of atrial fibrillation, hypertension, CAD, and CABG 2. She also had a right shoulder replacement done at [facility] 5 days ago. Patient states that she was also given Lasix at time of discharge and was feeling fairly well until yesterday morning when she awoke and had onset of shortness of breath. She states that she continued with her day and used her inhaler however had minimal relief in the shortness of breath continued as the day progressed. She was then brought to the emergency room for further evaluation. Upon admission she was found to have oxygen saturations in the 70s and low 80s. She denied any chest pain at that time. Chest x-ray on admission showed low lung volumes with bronchovascular crowding and elevation of her left hemidiaphragm. Hemoglobin was noted at 9.4 and a mild elevation in her troponin levels. Today patient is noted to have a drop in her hemoglobin at 8.1. She has no reports of overt bleeding. She states she has not had a bowel movement since last due to history of rectocele. She is requested manual impaction removal today. She states this is an ongoing problem and takes laxatives usually every day to have a bowel movement. She does report that she has noticed some dark stools as of recent denying any iron supplement are Pepto-Bismol use. She contributes this change to drinking chocolate boost. She has never had a GI bleed in the past that she can recall. Denies any abdominal pain, nausea vomiting. Denies any recent weight loss, fever or chills. Denies any dysphagia or reflux symptoms. Denies any NSAID use. She does take Plavix for her atrial fibrillation however this was changed on yesterday to Eliquis per patient. She also takes an 81 mg aspirin daily. BUN/creatinine ratio noted elevated at 22. BNP is elevated as well. Colonoscopy was done in November of last year with findings of colon polyps , melanosis coli, diverticulosis and moderate-sized internal hemorrhoids which appeared to be a source of bleeding. Unable to locate pathology report at this time. EGD was also done in February of last year with findings of esophageal stricture which was dilated as well as hiatal hernia. She denies a history of anemia in the past and has had a blood transfusion 1 following heart surgery. Home Medications Medication Instructions Recorded Confirmed Type Aspirin [Ecotrin] 81 mg PO QAM 12/07/15 09/18/16 History Beclomethasone 40 Mcg Inhaler 40 mcg INH BID 12/07/15 09/18/16 History [Qvar 40 Mcg] Donepezil [Aricept] 10 mg PO QAM 12/07/15 09/18/16 History Ezetimibe/Simvastatin 10-80 1 tablet PO BEDTIME 12/07/15 09/18/16 History [Vytorin 10-80] Loratadine [Claritin] 10 mg PO QPM 12/07/15 09/18/16 History Montelukast Tab [Singulair Tab] 10 mg PO BEDTIME 12/07/15 09/18/16 History Nitrofurantoin Macrocrystals 50 mg PO BEDTIME 12/07/15 09/18/16 History [Macrodantin] Potassium 99 mg PO BID 12/07/15 09/18/16 History Thyroid,Pork [[place] Thyroid] 30 mg PO QAM 12/07/15 09/18/16 History Tolterodine LA [Detrol LA] 4 mg PO QAM 12/07/15 09/18/16 History Budesonide/Formoterol 160-4.5 2 puff INH BID 03/07/16 09/18/16 History [Symbicort 160-4.5] HYDROcodone/ACETAMIN 7.5-325 1 tablet PO Q8HR PRN 03/07/16 09/18/16 History [[place] 7.5-325] Ipratropium/Albuterol Inhaler 1 puff INH QID 03/07/16 09/18/16 History [Combivent Respimat Inhaler] Melatonin 1 mg PO BEDTIME 03/07/16 09/18/16 History [place]-3 Fatty Acids [Fish Oil] 1,000 mg PO QPM 03/07/16 09/18/16 History Apixaban [Eliquis] 2.5 mg PO BID 09/18/16 09/18/16 History Calcium Carbonate/Vitamin D3 1 each PO QPM 09/18/16 09/18/16 History [Calcium 600 + Vit D Tablet] Cholecalciferol (Vitamin D3) 5,000 unit PO QAM 09/18/16 09/18/16 History [Vitamin D3] Diltiazem Tab [Cardizem Tab] 120 mg PO BID 09/18/16 09/18/16 History Furosemide Tab [Lasix Tab] 20 mg PO QAM PRN 09/18/16 09/18/16 History Isosorbide Mononitrate [Isosorbide 10 mg PO BID 09/18/16 09/18/16 History Mononitrate] Levocetirizine Dihydrochloride 5 mg PO QAM 09/18/16 09/18/16 History [Xyzal] Magnesium Chloride [Slow Mag] 64 mg PO QAM 09/18/16 09/18/16 History Metoprolol Succinate Xl [Toprol Xl] 12.5 mg PO BID 09/18/16 09/18/16 History Mometasone 50 Mcg Nasal [place] 2 spray BOTH NARES DAILY PRN 09/18/16 09/18/16 History [Nasonex Nasal [place]] Multivitamin (Ocuvite) [Ocuvite] 1 tablet PO QAM 09/18/16 09/18/16 History Nitroglycerin Sl Tab [Nitrostat] 0.4 mg SL Q5M PRN 09/18/16 09/18/16 History Vitamin E Acetate [Vitamin E] 1,000 unit PO QPM 09/18/16 09/18/16 History Allergies Allergy/AdvReac Type Severity Reaction Status Date / Time acetaminophen [From Lortab] Allergy Verified 12/07/15 10:26 codeine Allergy Verified 12/07/15 10:26 Diatrizoic Acid Allergy Verified 12/07/15 10:26 [From Hypaque] droperidol [From Innovar] Allergy Verified 12/07/15 10:26 fentanyl [From Innovar] Allergy Verified 12/07/15 10:26 hydrocodone [From Lortab] Allergy Verified 12/07/15 10:26 Hydromorphone [From Dilaudid] Allergy Verified 12/07/15 10:10 hydroxyzine [From Vistaril] Allergy Verified 12/07/15 10:26 iodine Allergy Verified 12/07/15 10:26 meperidine [From Demerol] Allergy Verified 12/07/15 10:10 methylene blue Allergy Verified 12/07/15 10:26 morphine Allergy Verified 12/07/15 10:26 nalbuphine [From Nubain] Allergy Verified 12/07/15 10:10 pentazocine [From Talwin] Allergy Verified 12/07/15 10:10 promethazine [From Phenergan] Allergy Verified 12/07/15 10:26 propoxyphene Allergy Verified 12/07/15 10:26 [From Darvocet-N 100] Trimethobenzamide Allergy Verified 12/07/15 10:26 [From Tigan] Medical,Surgical,& Family Hx - Medical History Cardio: History of: CAD, Hypertension, [place] No history of: Pacemaker Neurology: History of: Vertigo Endocrine: History of: Dyslipidemia Respiratory: History of: Asthma, Obstructive Sleep Apnea Genitourinary: History of: Bladder Problem, Kidney Stones Musculoskeletal: History of: Back/Neck Problems, Musculoskeletal Problems Hematology: History of: Anemia - Surgical History Cardiac Surgeries: Sugical HX of: Cardiac Catheterization, Cardiac Surgery (CABG ) Thoracic Surgeries: Surgical HX of;: Nephrectomy (LEFT) HEENT Surgeries: Surgical HX of: Thyroid Surgery, Tonsilectomy & Adenoidectomy Abdominal Surgeries: Surgical HX of: Appendectomy, Cholecystectomy, Colonoscopy , EGD Reproductive Surgeries: Surgical HX of;: Hysterectomy Patient denies;: Breast Surgery Orthopedic Surgeries: Surgical HX of;: Orthopedic Surgery (RIGHT SHOULDER) - Family History Family History: Reports;: Family Cancer, Family Heart Disease, Family Hypertension - Social History Smoking Status: Never smoker Frequency of Alcohol Use: None Type of Drug Use: None 12 point system: reviewed and no additional remarkable complaints except as stated - Constitutional Constitutional: Present: as per HPI - EENT Eyes: Present: as per HPI Ears: Present: as per HPI Nose, mouth and throat: Present: as per HPI - Cardiovascular Cardiovascular: Present: as per HPI - Respiratory Respiratory: Present: as per HPI - Gastrointestinal Gastrointestinal: Present: as per HPI, constipation, melena - Genitourinary Genitourinary: Present: as per HPI - Musculoskeletal Musculoskeletal: Present: as per HPI - Neurological Neurological: Present: as per HPI - Psychiatric Psychiatric: Present: as per HPI - Endocrine Endocrine: Present: as per HPI - Hematologic/Lymphatic Hematologic/Lymphatic: Present: as per HPI Exam - Constitutional Vitals: Period Temp Pulse Resp BP Sys/[place] Pulse Ox Last 24 Hr 96.3 F-98.4 F 86-122 16-32 108-139/60-80 92-100 General appearance: normal weight, no acute distress - Head Head exam: Present: normal inspection, normocephalic - Eye Eye exam: Present: other (Lids and conjunctivae unremarkable). Absent: scleral icterus - ENT ENT exam: Present: normal exam, normal oropharynx - Neck Neck exam: Present: normal inspection - Respiratory Respiratory exam: Present: clear to auscultation bilaterally. Absent: rales, rhonchi, wheezes - Cardiovascular Cardiovascular exam: Present: regular rate and rhythm. Absent: diastolic murmur , JVD, systolic murmur - GI/Abdominal GI/Abdominal exam: Present: normal bowel sounds, soft. Absent: ascites, distended, mass, organomegaly, tenderness - Extremities Exam Extremities exam: Present: normal inspection, full ROM - Back Exam Back exam: Present: normal inspection - Neurological Exam Neurological exam: Present: alert, oriented X3 - Psychiatric Psychiatric exam: Present: normal affect, normal mood - Skin Skin exam: Present: normal color, warm, dry Results - Labs CBC & BMP: 09/19/16 04:00 09/19/16 06:59 Lab Results: I have reviewed the past 24 hour labs
--- NOTE | 2016-09-19 14:06 | CT Report ---
Exam: CT chest with contrast, PE study Date: 09/19/2016 Comparison: Chest x-ray 09/18/2016 Reason: Shortness of breath Technique: Axial images of the chest were obtained after administration of 80 cc of IV Omnipaque 350 intravenous contrast. Coronal reformatted images were also acquired. The study was performed per pulmonary embolism protocol. Total DLP: 230.10 Findings: The heart is enlarged with prior median sternotomy. Cardiac fat pads with diffuse arterial calcifications including coronary calcifications. Limited contrast in the aorta with no evidence of obvious aortic dissection. No definite pulmonary emboli identified. Streak artifact from the right shoulder replacement. No significant chest lymphadenopathy. At the level of the naresh, the right pleural effusion measures 23 mm in depth. The left pleural effusion measures 11 mm in depth. Apparent prior left nephrectomy with degenerative changes. Evidence of paraseptal bullous emphysema with diffuse groundglass opacities. Also dense atelectasis/consolidation in the lower lobes. Less prominent findings are noted in the lingula. Impression: No pulmonary emboli are identified. Cardiomegaly with prior median sternotomy and right shoulder replacement. Extensive arterial calcifications with small to moderate right and slightly smaller left pleural effusions. Dense atelectasis/consolidation in the lower lobes/lingula with additional minimal paraseptal emphysema and diffuse interstitial fibrosis/edema. Prior left nephrectomy. This CT exam was performed using one or more the following dose reduction techniques: Automated exposure control, adjustment of the MA and/or KV according to patient size, or use of iterative reconstruction technique. PROCEDURE INTERPRETED AT [facility] DEPARTMENT OF RADIOLOGY Final Report Signed by: Dr. Clau Umanzor
--- NOTE | 2016-09-19 15:13 | Hospitalist Progress Note ---
Assessment and Plan (1) Congestive heart failure Status: Acute Assessment and plan: Echocardiogram, Lasix 40 mg IV every 12 Current Visit: Yes (2) Atrial fibrillation Status: Acute Assessment and plan: Continue Eliquis for now. Continue metoprolol for rate control Current Visit: Yes (3) Status post shoulder replacement Status: Chronic Assessment and plan: Recent shoulder replacement Current Visit: Yes (4) Anemia Status: Acute Assessment and plan: 2 units of packed red blood cells. Will give Lasix after each unit of prbc, continue Protonix, guaiac stool, consult Dr. Taylor Current Visit: Yes (5) Coronary artery disease Status: Chronic Assessment and plan: Serial troponins are positive, continue aspirin, cardiology seen Current Visit: Yes (6) COPD (chronic obstructive pulmonary disease) Status: Chronic Assessment and plan: Duo nebs, steroids, levaquin Current Visit: Yes (7) Elevated troponin Status: Acute Assessment and plan: cardiology seeing cont asa. Had cabg in past Current Visit: Yes (8) Hematuria Status: Acute Assessment and plan: may need to hold eliquis will monitor for now Current Visit: Yes Hospitalist: Subjective Interval history: Patient's chest CT shows no evidence of PE but does show emphysema and air enlarging right pleural effusion. Along with emphysema. We will have GI see her today as she is on aspirin and Eliquis and she has hematuria with a concerned that she may have bleeding in her stools. I will give her 2 units of blood today with Lasix after each unit. Patient has a history of atrial fib and does not want to be on Eliquis. She would rather be on Plavix. I tried to explain to her that would not prevent a stroke from A. fib. 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 I told her not to refuse Eliquis tell cardiology has time to talk to her about it. She will be difficult to treat. Exam - Constitutional Vitals: Period Temp Pulse Resp BP Sys/[place] Pulse Ox Last 24 Hr 96.3 F-98.4 F 86-122 16-30 108-139/58-64 92-100 Exam: Heart Rate-[tachy] Lungs-[very diminished especially on left] GI-[+bs soft, NT] Ext-[trace edema] Neuro [Motor 5/5], [alert and oriented times 3] psych [normal mood and affect] General [mod acute distress] Results - Labs CBC & BMP: 09/19/16 04:00 09/19/16 06:59 Lab Results: I have reviewed the past 24 hour labs - Diagnostic Findings Procedure: CT - chest: report reviewed by me (no PE, copd, right pleural effusion, questionable pneumonia )
[2016-09-19] MEDS: BISACODYL 10 MG SUPP RECTAL SCH (15:42)
--- NOTE | 2016-09-19 18:27 | ECHO Report ---
RodriguezJacintacy 09/19/2016 Exam Date: 17:37 Referring Physician: Marcela Phipps Technologist: LINDA Age: 81 Ht (in): 57 Wt (lb): 110 FExam Location[facility] Gender: Echo [id number]: Hx. a fib, CHF, HTN, s/p shoulder Indications: BP: 108 / 64 HR: 86 SinusRhythm: Technical Quality: IMPRESSIONS Normal left ventricular size, with mild concentric hypertrophy, with normal systolic function. Estimated left ventricular ejection fraction 60%. Grade 3 diastolic dysfunction. Severe left atrial enlargement. Mild mitral valve sclerosis. Moderate to severe eccentric mitral valve regurgitation. Aortic valve sclerosis, without stenosis, with mild insufficiency. Moderate pulmonary hypertension, with moderate tricuspid regurgitation. MEASUREMENTS (Male / Female) Normal Values 2D ECHO LV Diastolic Diameter PLAX 3.4 cm 4.2 - 5.9 / 3.9 - 5.3 cm LV Systolic Diameter PLAX 2.5 cm LV Fractional Shortening PLAX 27.5 % IVS Diastolic Thickness 1.3 cm 0.6 - 1.0 / 0.6 - 0.9 cm LVPW Diastolic Thickness 1.3 cm 0.6 - 1.0 / 0.6 - 0.9 cm RV Internal Dim ED PLAX 3.0 cm Aortic Root Diameter 2.9 cm LA Systolic Diameter LX 5.0 cm 3.0 - 4.0 / 2.7 - 3.8 cm DOPPLER TR Peak Velocity 375.0 cm/s TR Peak Gradient 56.3 mmHg FINDINGS Left Ventricle Normal left ventricular size, with mild concentric hypertrophy, with normal systolic function. Estimated left ventricular ejection fraction 60%. Grade 3 diastolic dysfunction. Right Ventricle Normal right ventricular size, with normal systolic function. Right Atrium Normal right atrial size. Left Atrium Severely increased left atrial diameter. Mitral Valve Mild mitral valve sclerosis. Moderate to severe eccentric mitral valve regurgitation. Aortic Valve Aortic valve sclerosis, without stenosis, with mild insufficiency. Tricuspid Valve Morphologically normal tricuspid valve. Moderate tricuspid valve regurgitation. Tricuspid regurgitation velocities suggest a PAP of 66 mmHg. Pulmonic Valve Morphologically normal pulmonic valve. Trace pulmonary valve regurgitation. Pericardium No pericardial effusion. Aorta Normal size aortic root and proximal ascending aorta. Froilan Jo (Electronically Signed) 19 Sep 2016 18:26Final Date:
[2016-09-19] MEDS: VITAMIN E 1000 UNIT CAPSULE PO SCH (18:50)
[2016-09-19] MEDS: OMEGA 3 ACID ETHYL ESTERS 1 GM CAPSULE PO SCH (18:50)
[2016-09-19] MEDS ORDERED: CALCIUM (CARBONATE)/VITAMIN D 600 MG-400 UNIT TABLET PO SCH (19:00)
[2016-09-19 19:43] LABS: % Iron Saturation 18.4 % (18-50); Ferritin 300.2 ng/ml (8-252)
[2016-09-19] MEDS: LEVOFLOXACIN INJ 750 MG in PREMIX 1 EACH IV SCH (21:59)
[2016-09-19] MEDS: EZETIMIBE PO SCH (21:59)
[2016-09-19] MEDS: SIMVASTATIN PO SCH (21:59)
[2016-09-19] MEDS: LORATADINE 10 MG TABLET PO SCH (22:00)
[2016-09-19] MEDS: MONTELUKAST 10 MG TABLET PO SCH (22:01)
[2016-09-19] MEDS: MELATONIN 3 MG TABLET PO SCH (22:01)
[2016-09-19] MEDS: METOPROLOL SUCCINATE XL 100 MG TABLET PO SCH (22:01)
[2016-09-19 22:51] LABS: Hematocrit 31.4 VOL% (35.7-47.0)
[2016-09-19 22:52] LABS: Hemoglobin 10.6 GM/DL (12.0-16.0)
[2016-09-19] MEDS: LACTULOSE 20 GM/30 ML UDCUP PO PRN (23:52)
[2016-09-20] MEDS: ALBUTEROL/IPRATROPIUM 3 ML NEB RESP TX SCH ×6 (01:42→19:23)
[2016-09-20] MEDS: methylPREDNISolone SOD SUC 125 MG/2 ML VIAL IV SCH ×3 (01:57→16:50)
[2016-09-20 06:25] LABS: Hematocrit 34.3 VOL% (35.7-47.0); Hemoglobin 11.2 GM/DL (12.0-16.0); Immature Granulocytes % 1.4 %; Immature Granulocytes Absolute 0.11 #; Lymphocytes # 0.4 10*3/uL (1.4-4.0); Lymphocytes % 5.4 % (21.3-54.2); Mean Corpuscular HGB Conc 32.7 GM/DL (32-36); Mean Corpuscular Hemoglobin 29 PG (27-34); Mean Corpuscular Volume 87.9 FL (87-102); Mean Platelet Volume 10.4 FL (9.6-12.0); Monocytes # 0.3 10*3/uL (0.11-0.8); Monocytes % 3.8 % (1.7-12.7); NRBC # 0.02 10*3/uL; Neutrophils # 7.1 10*3/uL (1.4-7.4); Neutrophils % 89.4 % (38.7-73.9); Platelet Count 190 T/CUMM (130-400); Red Cell Distribution Width 15.8 % (9.3-17.3)
[2016-09-20 06:59] LABS: Calcium 8.7 MG/DL (8.5-10.1); Osmolality,Calculated 280.8 MOS/KG (273-304); Potassium 3.9 MMOL/L (3.5-5.1)
--- NOTE | 2016-09-20 07:27 | XRay Report ---
Referring Physician: BARRY Grubbs Exam: XR chest 1V portable Date: September 20, 2016 at 5:56 AM Reason: Shortness of breath Comparison: Chest one view portable September 18, 2016 Findings: The cardiac silhouette is again enlarged, and the patient is status post sternotomy. The lungs are poorly expanded, and there are scattered opacities within both lungs. This is concerning for pulmonary edema, atelectasis and possibly pneumonia. There could also be a component of scarring. No pneumothorax is identified, but there is minimal bilateral pleural fluid. The osseous structures appear stable with a right shoulder prosthesis. Impression: There has been no significant change. PROCEDURE INTERPRETED AT [facility] DEPARTMENT OF RADIOLOGY Final Report Signed by: Dr. Arely Tilley
--- NOTE | 2016-09-20 09:02 | Gastrointestinal Progress Note ---
Assessment and Plan (1) Anemia Status: Acute Assessment and plan: 09/20-hemoglobin stable 11.2. No overt bleeding however no bowel movement. Give magnesium citrate today and obtain repeat stool for occult blood with bowel movement. Iron studies noted. Plan an addendum to followed by Dr. Taylor. 09/19-admitted with shortness of breath, noted to have drop in hemoglobin from admission at 9.4-8.1 without overt bleeding. No prior history of GI bleeding per patient. Recent upper and lower endoscopy in 2016. Findings noted below. Stools for occult blood pending. Plan an addendum to followed by Dr. Taylor. Current Visit: Yes Gastroenterology - PN: Subj Interval history: CC: Anemia Patient is seen awake and alert with spouse at bedside. States she had an uneventful night. She denies any signs of overt bleeding at this time. She is still not had a bowel movement with Dulcolax suppository and attempt at manual disimpaction. Abdomen is soft, nontender. Hemoglobin is improved at 11 today. Stool for occult blood was negative however this was obtained during the disimpaction attempt. Will give magnesium [employer]-Rite today and obtain another stool for occult blood. Iron studies were done with notation of iron at 45, TIBC 244, saturation 18, and ferritin 300. Tolerating her diet well. ROS: Denies shortness of breath or chest pain Exam (Progress Note) - Constitutional Vitals: Period Temp Pulse Resp BP Sys/[place] Pulse Ox Last 24 Hr 96.4 F-98.7 F 71-115 16-22 101-132/49-78 90-100 General appearance: normal weight, no acute distress - Head Head exam: Present: normal inspection, normocephalic - Eye Eye exam: Present: other (Lids and conjunctive are unremarkable). Absent: scleral icterus - ENT ENT exam: Present: normal exam, normal oropharynx - Neck Neck exam: Present: normal inspection - Respiratory Respiratory exam: Present: clear to auscultation bilaterally. Absent: rales, rhonchi, wheezes - Cardiovascular Cardiovascular exam: Present: regular rate and rhythm. Absent: diastolic murmur , JVD, systolic murmur - GI/Abdominal GI/Abdominal exam: Present: normal bowel sounds, soft. Absent: ascites, distended, mass, tenderness - Extremities Exam Extremities exam: Present: normal inspection, full ROM - Back Exam Back exam: Present: normal inspection - Neurological Exam Neurological exam: Present: alert, oriented X3 - Psychiatric Psychiatric exam: Present: normal affect, normal mood - Skin Skin exam: Present: normal color, warm, dry Results - Labs CBC & BMP: 09/20/16 05:20 09/20/16 05:20 Lab Results: I have reviewed the past 24 hour labs
--- NOTE | 2016-09-20 09:02 | EKG Report ---
Stationary ECG Study [facility] Test Date: 09/20/2016 9:01:08 AM Pat Name: FILIPE BARRY Department: Room: 281 Gender: F Ui Application Developer: TREVOR : [id number] Requested by: Tawana Jo Order Number: [id number] Reading MD: TAWANA JO Intervals [place] Rate: 99 P: 999 FL: 0 QRS: 46 QRSD: 97 T: 200 QT: 374 QTc: 431 Interpretive Statements ATRIAL FIBRILLATION MARKED ST DEPRESSION, CONSIDER SUBENDOCARDIAL INJURY Electronically Signed On 09-22-16 15:54:27 CDT by TAWANA JO [email or web address]
[2016-09-20] MEDS ORDERED: MAGNESIUM CITRATE 300 ML BOTTLE PO ONE (09:03)
[2016-09-20] MEDS: ASPIRIN EC 81 MG TABLET PO SCH (10:10)
[2016-09-20] MEDS: APIXABAN 2.5 MG TABLET PO SCH (10:11)
[2016-09-20] MEDS: CHOLECALCIFEROL 1,000 UNIT TABLET PO SCH (10:19)
[2016-09-20] MEDS: POTASSIUM GLUCONATE 500 MG TABLET PO SCH (10:20)
[2016-09-20] MEDS: DOCUSATE SODIUM 100 MG CAPSULE PO PRN (10:21)
[2016-09-20] MEDS: DONEPEZIL 10 MG TABLET PO SCH (10:21)
[2016-09-20] MEDS: DILTIAZEM 60 MG TABLET PO SCH ×2 (10:21→22:16)
[2016-09-20] MEDS: MULTIVITAMIN (OCUVITE) TABLET PO SCH (10:21)
[2016-09-20] MEDS: CETIRIZINE 10 MG TABLET PO SCH (10:22)
[2016-09-20] MEDS: PANTOPRAZOLE 40 MG TABLET PO SCH (10:22)
[2016-09-20] MEDS: METOPROLOL SUCCINATE XL 100 MG TABLET PO SCH ×2 (10:22→22:21)
[2016-09-20] MEDS: MAGNESIUM CHLORIDE 64 MG TABLET PO SCH (10:23)
[2016-09-20] MEDS: THYROID 60 MG TABLET PO SCH (10:24)
[2016-09-20] MEDS: TOLTERODINE LA 4 MG CAPSULE PO SCH (10:24)
[2016-09-20] MEDS: ISOSORBIDE MONONITRATE 20 MG TABLET PO SCH ×2 (10:24→22:20)
[2016-09-20] MEDS: BISACODYL 10 MG SUPP RECTAL SCH ×2 (10:25→13:28)
[2016-09-20] MEDS: FUROSEMIDE 40 MG/4 ML VIAL IV SCH ×2 (10:25→16:50)
[2016-09-20] MEDS: BUDESONIDE/FORMOTEROL 160-4.5 INHALER 6 GM INH SCH ×2 (10:37→22:24)
[2016-09-20] MEDS: BECLOMETHASONE 40 MCG/PUFF INHALER 8.7 GM INH SCH ×2 (10:38→22:24)
--- NOTE | 2016-09-20 14:05 | Hospitalist Progress Note ---
Assessment and Plan (1) Congestive heart failure Status: Acute Assessment and plan: Echocardiogram 60% diastolic dysfunction 3, Lasix 40 mg IV every 12 Current Visit: Yes (2) Atrial fibrillation Status: Acute Assessment and plan: Hold eliquis, cont metoprolol Current Visit: Yes (3) Status post shoulder replacement Status: Chronic Assessment and plan: Recent shoulder replacement Current Visit: Yes (4) Anemia Status: Acute Assessment and plan: protonix bid Current Visit: Yes (5) Coronary artery disease Status: Chronic Assessment and plan: Serial troponins are positive, hold asa Current Visit: Yes (6) COPD (chronic obstructive pulmonary disease) Status: Chronic Assessment and plan: Duonebs, steroids, levaquin Current Visit: Yes (7) Elevated troponin Status: Acute Assessment and plan: cardiology seeing cont asa. Had cabg in past Current Visit: Yes (8) Hematuria Status: Acute Assessment and plan: hold eliquis and asa as hematuria more severe, remove wagner Current Visit: Yes Hospitalist: Subjective Interval history: Patient wants to be a chemical code only she does not want CPR, defibrillation or intubation. Unfortunately we do not have that CODE STATUS other than putting in a message to caregiver that is all I can do to communicate that to nursing. Patient seems more short of breath to me today. Her bleeding from her Wagner is significantly worse. I have asked the nurses to pull the Wagner today. Her daughter is a nurse in [place] who has now arrived. Spoke with her for 15 min. Total time spent 50 min Exam - Constitutional Vitals: Period Temp Pulse Resp BP Sys/[place] Pulse Ox Last 24 Hr 96.4 F-98.7 F 71-115 16-22 101-132/49-78 90-100 Exam: Heart Rate-[tachy] Lungs-[very diminished GI-[+bs soft, NT] Ext-[trace edema] Neuro [Motor 4/5], [alert and oriented times 3] psych [normal mood and affect] General [mod acute distress] Results - Labs CBC & BMP: 09/20/16 05:20 09/20/16 05:20 Lab Results: I have reviewed the past 24 hour labs - Diagnostic Findings Procedure: Chest x-ray: report reviewed by me (opacities ), Ultrasound: report reviewed by me (echo ef 60%, grade diastolic dys, PAP 66 )
--- NOTE | 2016-09-20 16:24 | Nephrology Consult Note ---
History of Present Illness Chief complaint: Solitary kidney, hematuria History of present illness: Ms. Rodriguez is a 81 year old female admitted with shortness of breath. Chest x- ray showed pulmonary fibrosis versus pulmonary edema. She has been treated with diuretics. She feels better today. She had shoulder replacement surgery last Friday. She states she has had a cough and sore throat since then. She coughed up some blood-streaked sputum today and her breathing improved significantly afterward. She has no pleuritic chest pain. She has had a previous left nephrectomy for renal cell carcinoma. Renal function was normal on admission. Creatinine is risen slightly. She did have CT with IV contrast. She has developed hematuria since her catheter was placed. She has no dysuria Home Medications Medication Instructions Recorded Confirmed Type Aspirin [Ecotrin] 81 mg PO QAM 12/07/15 09/18/16 History Beclomethasone 40 Mcg Inhaler 40 mcg INH BID 12/07/15 09/18/16 History [Qvar 40 Mcg] Donepezil [Aricept] 10 mg PO QAM 12/07/15 09/18/16 History Ezetimibe/Simvastatin 10-80 1 tablet PO BEDTIME 12/07/15 09/18/16 History [Vytorin 10-80] Loratadine [Claritin] 10 mg PO QPM 12/07/15 09/18/16 History Montelukast Tab [Singulair Tab] 10 mg PO BEDTIME 12/07/15 09/18/16 History Nitrofurantoin Macrocrystals 50 mg PO BEDTIME 12/07/15 09/18/16 History [Macrodantin] Potassium 99 mg PO BID 12/07/15 09/18/16 History Thyroid,Pork [[place] Thyroid] 30 mg PO QAM 12/07/15 09/18/16 History Tolterodine LA [Detrol LA] 4 mg PO QAM 12/07/15 09/18/16 History Budesonide/Formoterol 160-4.5 2 puff INH BID 03/07/16 09/18/16 History [Symbicort 160-4.5] HYDROcodone/ACETAMIN 7.5-325 1 tablet PO Q8HR PRN 03/07/16 09/18/16 History [[place] 7.5-325] Ipratropium/Albuterol Inhaler 1 puff INH QID 03/07/16 09/18/16 History [Combivent Respimat Inhaler] Melatonin 1 mg PO BEDTIME 03/07/16 09/18/16 History [place]-3 Fatty Acids [Fish Oil] 1,000 mg PO QPM 03/07/16 09/18/16 History Apixaban [Eliquis] 2.5 mg PO BID 09/18/16 09/18/16 History Calcium Carbonate/Vitamin D3 1 each PO QPM 09/18/16 09/18/16 History [Calcium 600 + Vit D Tablet] Cholecalciferol (Vitamin D3) 5,000 unit PO QAM 09/18/16 09/18/16 History [Vitamin D3] Diltiazem Tab [Cardizem Tab] 120 mg PO BID 09/18/16 09/18/16 History Furosemide Tab [Lasix Tab] 20 mg PO QAM PRN 09/18/16 09/18/16 History Isosorbide Mononitrate [Isosorbide 10 mg PO BID 09/18/16 09/18/16 History Mononitrate] Levocetirizine Dihydrochloride 5 mg PO QAM 09/18/16 09/18/16 History [Xyzal] Magnesium Chloride [Slow Mag] 64 mg PO QAM 09/18/16 09/18/16 History Metoprolol Succinate Xl [Toprol Xl] 12.5 mg PO BID 09/18/16 09/18/16 History Mometasone 50 Mcg Nasal [place] 2 spray BOTH NARES DAILY PRN 09/18/16 09/18/16 History [Nasonex Nasal [place]] Multivitamin (Ocuvite) [Ocuvite] 1 tablet PO QAM 09/18/16 09/18/16 History Nitroglycerin Sl Tab [Nitrostat] 0.4 mg SL Q5M PRN 09/18/16 09/18/16 History Vitamin E Acetate [Vitamin E] 1,000 unit PO QPM 09/18/16 09/18/16 History Allergies Allergy/AdvReac Type Severity Reaction Status Date / Time acetaminophen [From Lortab] Allergy Verified 12/07/15 10:26 codeine Allergy Verified 12/07/15 10:26 Diatrizoic Acid Allergy Verified 12/07/15 10:26 [From Hypaque] droperidol [From Innovar] Allergy Verified 12/07/15 10:26 fentanyl [From Innovar] Allergy Verified 12/07/15 10:26 hydrocodone [From Lortab] Allergy Verified 12/07/15 10:26 Hydromorphone [From Dilaudid] Allergy Verified 12/07/15 10:10 hydroxyzine [From Vistaril] Allergy Verified 12/07/15 10:26 iodine Allergy Verified 12/07/15 10:26 meperidine [From Demerol] Allergy Verified 12/07/15 10:10 methylene blue Allergy Verified 12/07/15 10:26 morphine Allergy Verified 12/07/15 10:26 nalbuphine [From Nubain] Allergy Verified 12/07/15 10:10 pentazocine [From Talwin] Allergy Verified 12/07/15 10:10 promethazine [From Phenergan] Allergy Verified 12/07/15 10:26 propoxyphene Allergy Verified 12/07/15 10:26 [From Darvocet-N 100] Trimethobenzamide Allergy Verified 12/07/15 10:26 [From Tigan] Medical,Surgical,& Family Hx - Medical History Cardio: History of: CAD, Hypertension, [place] No history of: Pacemaker Neurology: History of: Vertigo Endocrine: History of: Dyslipidemia Respiratory: History of: Asthma, Obstructive Sleep Apnea Genitourinary: History of: Bladder Problem, Kidney Stones Musculoskeletal: History of: Back/Neck Problems, Musculoskeletal Problems Hematology: History of: Anemia - Surgical History Cardiac Surgeries: Sugical HX of: Cardiac Catheterization, Cardiac Surgery (CABG ) Thoracic Surgeries: Surgical HX of;: Nephrectomy (LEFT) HEENT Surgeries: Surgical HX of: Thyroid Surgery, Tonsilectomy & Adenoidectomy Abdominal Surgeries: Surgical HX of: Appendectomy, Cholecystectomy, Colonoscopy , EGD Reproductive Surgeries: Surgical HX of;: Hysterectomy Patient denies;: Breast Surgery Orthopedic Surgeries: Surgical HX of;: Orthopedic Surgery (RIGHT SHOULDER) - Family History Family History: Reports;: Family Cancer, Family Heart Disease, Family Hypertension - Social History Smoking Status: Never smoker Frequency of Alcohol Use: None Type of Drug Use: None Review of Systems 12 point system: reviewed and no additional remarkable complaints except as stated Exam - Vital Signs Vital signs: Period Temp Pulse Resp BP Sys/[place] Pulse Ox Last 24 Hr 97.0 F-98.7 F 82-115 16-22 101-132/54-78 87-100 Exam: Gen.: Alert and oriented x3. ENT: Pupils equal round reactive to light. EOMs intact. Mucous membranes moist. Neck: Supple. No JVD or bruit. Cardiovascular: Regular rate and rhythm. No murmur rub or gallop Lungs: Clear Abdomen: Soft. Nontender. Positive bowel sounds. No organomegaly Extremities: No edema Results - Labs CBC & BMP: 09/20/16 05:20 09/20/16 05:20 Assessment and Plan (1) Solitary kidney, acquired Status: Acute Assessment and plan: 81-year-old woman admitted with: * Solitary kidney. Remote left nephrectomy * Mild renal insufficiency. Creatinine normal on admission. It has risen after CT with IV contrast. Urine output is acceptable. Hopefully this will not rise much further * Hematuria. Urinalysis on admission showed no hematuria. This occurred after Crocker was placed. It is likely due to catheter trauma * CHF, diastolic. EF preserved * Hypertension * CAD. CABG 2 * Status post shoulder replacement last week Current Visit: Yes (2) Anemia Status: Acute Current Visit: Yes (3) Atrial fibrillation Status: Acute Current Visit: Yes (4) Congestive heart failure Status: Acute Current Visit: Yes (5) Hematuria Status: Acute Current Visit: Yes (6) Coronary artery disease Status: Chronic Current Visit: Yes (7) History of coronary artery bypass graft Status: Chronic Current Visit: Yes (8) Hypertension Status: Chronic Current Visit: Yes (9) Status post shoulder replacement Status: Chronic Current Visit: Yes
--- NOTE | 2016-09-20 17:33 | Cardiology Progress Note ---
Assessment and Plan - Time spent with patient Time spent with patient: Less than 30 minutes (1) Congestive heart failure Status: Acute Assessment and plan: SEE PLAN OF CARE LISTED BELOW Current Visit: Yes (2) Atrial fibrillation Status: Acute Assessment and plan: SEE PLAN OF CARE LISTED BELOW Current Visit: Yes (3) Hypertension Status: Chronic Assessment and plan: SEE PLAN OF CARE LISTED BELOW Current Visit: Yes (4) Status post shoulder replacement Status: Chronic Assessment and plan: SEE PLAN OF CARE LISTED BELOW Current Visit: Yes (5) Coronary artery disease Status: Chronic Assessment and plan: SEE PLAN OF CARE LISTED BELOW Current Visit: Yes (6) History of coronary artery bypass graft Status: Chronic Assessment and plan: SEE PLAN OF CARE LISTED BELOW Current Visit: Yes (7) Hyperlipidemia Status: Chronic Assessment and plan: SEE PLAN OF CARE LISTED BELOW Current Visit: Yes (8) COPD (chronic obstructive pulmonary disease) Status: Chronic Assessment and plan: SEE PLAN OF CARE LISTED BELOW Current Visit: Yes (9) Elevated troponin Status: Acute Assessment and plan: SEE PLAN OF CARE LISTED BELOW Current Visit: Yes (10) Anemia Status: Acute Assessment and plan: SEE PLAN OF CARE LISTED BELOW Current Visit: Yes (11) Hematuria Status: Acute Assessment and plan: SEE PLAN OF CARE LISTED BELOW. 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 CAM PCP: MARIANNE WHITLEY Ms. 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 She has a history of ischemic heart disease with 2 prior coronary artery bypass grafting surgeries, hypertension, hyperlipidemia, COPD, obstructive sleep apnea, prior nephrectomy, hypothyroidism, fibrosis of the lung. She is status post CABG on 06/08/96 with VG to LAD and VG to the circumflex. Her initial bypass surgery was 8 years prior to the redo surgery in 1996. Last heart catheterization was performed 01/28/[address] Cam. At that time, she was found to have 2 patent grafts with 40-50% ostial narrowing. She has been recently diagnosed with atrial fibrillation approximately 1 month ago. She underwent right shoulder surgery approximately 1 week ago. She presented to our facility with atrial fibrillation with rapid ventricular response, shortness of breath, demand ischemia, severe anemia. She has a history of prior lower GI bleed due to internal hemorrhoids but no recent recurrence. Per hospitalist notes, patient wishes to be a chemical code only. Her wagner was discontinued today due to bleeding. Her aspirin and Eliquis are now on hold. H& H improved after transfusion. Heart rate and blood pressure have been stable this afternoon. ASSESSMENT/PLAN: 1. CONGESTIVE HEART FAILURE - BNP 1199 on admission with diffuse crackles anteriorly and posteriorly. Creatinine 0.9. She is being diuresed. Echocardiogram reveals preserved EF with moderate pulmonary hypertension, severe -moderate MR, grade 3 diastolic dysfunction. Once she is stable, the severity of her valvular disease will need to be evaluated. This can be pursued as an outpatient. 2. ATRIAL FIBRILLATION - Unsure whether this is chronic or paroxysmal. She was recently diagnosed with this approximately 1 month ago. We have resumed her Cardizem PO. CHADSVASC 5. We started her on Eliquis but this along with her aspirin was held today due to hematuria. Will follow CBC. No signs of overt bleeding at this time but she is anemic. We will monitor. 3. HYPERTENSION - Currently well controlled. Will continue to monitor and adjust medications accordingly during hospitalization. 4. S/P RIGHT SHOULDER REPLACEMENT - This was done at [facility] in [place], [place] 6 days ago. 5. CORONARY ARTERY DISEASE - She is status post CABG on 06/08/96 with VG to LAD and VG to the circumflex. Her initial bypass surgery was 8 years prior to the redo surgery in 1996. Last heart catheterization was performed 01/28/[address] Cam. At that time, she was found to have 2 patent grafts with 40-50% ostial narrowing. 6. HISTORY OF CABG - She is status post CABG on 06/08/96 with VG to LAD and VG to the circumflex. Her initial bypass surgery was 8 years prior to the redo surgery in 1996. Last heart catheterization was performed 01/28/[address] Cam. At that time, she was found to have 2 patent grafts with 40-50% ostial narrowing. 7. HYPERLIPIDEMIA - Continue lipid-lowering agent. 8. COPD - O2 PRN. Her home medications have been resumed. Hospital medicine is following. 9. ELEVATED TROPONIN - Likely due to demand ischemia from her acute CHF. D- Dimer is also elevated. We are awaiting the results of her chest CT. She may require further evaluation with repeat heart catheterization at some point, but at this time we need to manage her acute events and further evaluate the source of her anemia. 10. ANEMIA - H&H 8.1 & 24.4 on admission. GI has been consulted. No signs of overt bleeding. Stools for occult blood pending. Likely due to blood loss related to her recent surgery. She was transfused with 2 units PRBCs and H&H is much improved. 11. HEMATURIA - Nephrology has been consulted. She had recent hematuria and has a solitary kidney as the other one was removed after a devastating kidney stone. This may limit anticoagulation options. Dr. Jo to follow with further plan and addendum. Exam (Progress Note) - Constitutional Vitals: Period Temp Pulse Resp BP Sys/[place] Pulse Ox Last 24 Hr 97.0 F-98.7 F 82-115 16-22 101-132/54-78 87-100 Exam: General appearance: Pleasant and cooperative. Overweight. No acute distress. - Head Head exam: Present: normal inspection, normocephalic, atraumatic. Absent: hematoma, laceration - Eye Eye exam: Present: EOMI. Absent: conjunctival injection, nystagmus, periorbital swelling, scleral icterus, laceration to eyelids Pupils: Present: PERRL. Absent: constricted, dilated, fixed, irregular, unequal - ENT ENT exam: Present: normal exam, normal external ear exam - Neck Neck exam: Present: normal inspection. Absent: lymphadenopathy, meningismus, tenderness, thyromegaly - Respiratory Respiratory exam: Present: diffuse crackles anteriorly and posteriorly, mild to moderate conversational dyspnea. Absent: accessory muscle use, chest wall tenderness - Cardiovascular Cardiovascular exam: Present: Irregular rate and rhythm. Absent: carotid bruit , gallop, JVD, rubs, murmur - GI/Abdominal GI/Abdominal exam: Present: normal bowel sounds, soft. Absent: distended, firm , guarding, hernia, mass, tenderness, rebound. - Extremities Exam Extremities exam: Present: normal inspection, normal capillary refill. Upper extremity pulses 2+. Lower extremity pulses 2+. 1+ BLE edema. Absent: calf tenderness -Musculoskeletal Exam Musculoskeletal: Present: No Fluid Collection, No Pain, Normal Range of Motion - Back Exam Back exam: Present: normal inspection. Absent: muscle spasm, vertebral tenderness - Neurological Exam Neurological exam: Present: alert, oriented X3, grossly intact without resting or essential tremor - Psychiatric Psychiatric exam: Present: normal affect, normal mood - Skin Skin exam: Present: normal color, warm, dry, intact. Absent: cyanosis, diaphoretic, rash, urticaria Result/EKG - Labs CBC & BMP: 09/20/16 05:20 09/20/16 05:20 Lab Results: I have reviewed the past 24 hour labs Labs: Laboratory Results - last 24 hr 09/19/16 09/19/16 09/19/16 04:00 22:40 Unknown WBC RBC Hgb 10.6 L D Hct 31.4 L MCV MCH MCHC RDW Plt Count MPV Neut % (Auto) Lymph % (Auto) [place] % (Auto) Eos % (Auto) Baso % (Auto) Neut # (Auto) Lymph # (Auto) [place] # (Auto) Eos # (Auto) Baso # (Auto) Immature Gran % Nucleated RBC % Immature Gran # Nucleated RBCs # Sodium Potassium Chloride Carbon Dioxide Anion Gap BUN Creatinine GFR Calculation BUN/Creatinine Ratio Glucose Calculated Osmolality Calcium Iron 45 L TIBC 244 L % Saturation 18.4 Ferritin 300.2 H Blood Type O POSITIVE Antibody Screen Negative Crossmatch See Detail 09/20/16 09/20/16 05:20 05:20 WBC 8.0 D RBC 3.90 D Hgb 11.2 L Hct 34.3 L MCV 87.9 MCH 29 MCHC 32.7 RDW 15.8 Plt Count 190 MPV 10.4 Neut % (Auto) 89.4 H Lymph % (Auto) 5.4 L [place] % (Auto) 3.8 Eos % (Auto) 0.0 Baso % (Auto) 0.0 Neut # (Auto) 7.1 Lymph # (Auto) 0.4 L [place] # (Auto) 0.3 Eos # (Auto) 0.0 Baso # (Auto) 0.0 Immature Gran % 1.4 Nucleated RBC % 0.3 Immature Gran # 0.11 Nucleated RBCs # 0.02 Sodium 137 Potassium 3.9 Chloride 96 L Carbon Dioxide 27 Anion Gap 17.9 H BUN 29 H Creatinine 1.60 H GFR Calculation 26 BUN/Creatinine Ratio 18.00 Glucose 135 H Calculated Osmolality 280.8 Calcium 8.7 Iron TIBC % Saturation Ferritin Blood Type Antibody Screen Crossmatch - EKG EKG results: interpreted by me EKG shows: atrial fibrillation
[2016-09-20] MEDS: OMEGA 3 ACID ETHYL ESTERS 1 GM CAPSULE PO SCH (18:46)
[2016-09-20] MEDS: VITAMIN E 1000 UNIT CAPSULE PO SCH (18:46)
[2016-09-20] MEDS: LACTULOSE 20 GM/30 ML UDCUP PO PRN (22:16)
[2016-09-20] MEDS: MELATONIN 3 MG TABLET PO SCH (22:17)
[2016-09-20] MEDS: SIMVASTATIN PO SCH (22:18)
[2016-09-20] MEDS: EZETIMIBE PO SCH (22:18)
[2016-09-20] MEDS: LORATADINE 10 MG TABLET PO SCH (22:20)
[2016-09-20] MEDS: MONTELUKAST 10 MG TABLET PO SCH (22:24)
[2016-09-20] MEDS: LEVOFLOXACIN INJ 750 MG in PREMIX 1 EACH IV SCH (23:16)
[2016-09-21] MEDS: ALBUTEROL/IPRATROPIUM 3 ML NEB RESP TX SCH ×7 (00:31→23:52)
[2016-09-21] MEDS: methylPREDNISolone SOD SUC 125 MG/2 ML VIAL IV SCH ×2 (01:07→09:18)
[2016-09-21 04:59] LABS: Basophils % 0.1 % (0.0-0.8); Hematocrit 39.4 VOL% (35.7-47.0); Hemoglobin 12.8 GM/DL (12.0-16.0); Immature Granulocytes % 1.7 %; Immature Granulocytes Absolute 0.24 #; Lymphocytes # 0.4 10*3/uL (1.4-4.0); Lymphocytes % 3.1 % (21.3-54.2); Mean Corpuscular HGB Conc 32.5 GM/DL (32-36); Mean Corpuscular Hemoglobin 29 PG (27-34); Mean Corpuscular Volume 89.5 FL (87-102); Mean Platelet Volume 10.1 FL (9.6-12.0); Monocytes # 0.9 10*3/uL (0.11-0.8); Monocytes % 6.6 % (1.7-12.7); Neutrophils # 12.2 10*3/uL (1.4-7.4); Neutrophils % 88.5 % (38.7-73.9); Platelet Count 254 T/CUMM (130-400); Red Cell Distribution Width 16.7 % (9.3-17.3); White Blood Count 13.7 T/CUMM (4-12)
[2016-09-21 05:32] LABS: Calcium 8.6 MG/DL (8.5-10.1); Osmolality,Calculated 282.1 MOS/KG (273-304); Potassium 3.5 MMOL/L (3.5-5.1)
[2016-09-21 05:44] LABS: Band Neutrophils 2 % (0-10); Lymphocytes 1 % (20-55); Myelocytes 2 %; Segmented Neutrophils 93 % (50-85); Total Cells Counted 100
[2016-09-21 05:45] LABS: Anisocytosis 1+; Ovalocytes Few; Platelet Estimate Normal
[2016-09-21] MEDS ORDERED: FUROSEMIDE 40 MG/4 ML VIAL IV SCH (09:00)
[2016-09-21] MEDS: DILTIAZEM 60 MG TABLET PO SCH (09:16)
[2016-09-21] MEDS: DONEPEZIL 10 MG TABLET PO SCH (09:16)
[2016-09-21] MEDS: TOLTERODINE LA 4 MG CAPSULE PO SCH (09:16)
[2016-09-21] MEDS: THYROID 60 MG TABLET PO SCH (09:17)
[2016-09-21] MEDS: ISOSORBIDE MONONITRATE 20 MG TABLET PO SCH (09:50)
[2016-09-21] MEDS: BISACODYL 10 MG SUPP RECTAL SCH (09:50)
[2016-09-21] MEDS: CHOLECALCIFEROL 1,000 UNIT TABLET PO SCH (09:51)
[2016-09-21] MEDS: CETIRIZINE 10 MG TABLET PO SCH (09:51)
[2016-09-21] MEDS: PANTOPRAZOLE 40 MG TABLET PO SCH (09:51)
[2016-09-21] MEDS: MULTIVITAMIN (OCUVITE) TABLET PO SCH (09:51)
[2016-09-21] MEDS: METOPROLOL SUCCINATE XL 100 MG TABLET PO SCH ×2 (09:51→22:33)
[2016-09-21] MEDS: MAGNESIUM CHLORIDE 64 MG TABLET PO SCH (09:51)
[2016-09-21] MEDS: BUDESONIDE/FORMOTEROL 160-4.5 INHALER 6 GM INH SCH ×2 (09:59→22:31)
[2016-09-21] MEDS: BECLOMETHASONE 40 MCG/PUFF INHALER 8.7 GM INH SCH ×2 (09:59→22:30)
[2016-09-21] MEDS: FUROSEMIDE 40 MG TABLET PO SCH (10:00)
--- NOTE | 2016-09-21 11:24 | Nephrology Progress Note ---
Nephrology - PN: Subj Interval history: Ms. Rodriguez is seen in follow-up of her solitary kidney and acute renal impairment. Her creatinine was 1.6 yesterday and remains 1.6 today. She is improving she did have some hematuria from catheter trauma. She is in no distress with a clear chest. She has her right arm in a sling from recent shoulder replacement surgery. She did have a contrasted CT on admission but it appears that her renal function is fairly stable to recovering. Exam (PN)-Nephrology - Vital Signs Vital signs: Period Temp Pulse Resp BP Sys/[place] Pulse Ox Last 24 Hr 96.7 F-98 F 76-104 16-20 115-152/61-76 87-100 - Lab 09/21/16 04:07 09/21/16 04:07 Most recent lab results Calcium 8.6 MG/DL (8.5-10.1) 09/21/16 04:07 Magnesium 2.3 MG/DL (1.8-2.4) 09/19/16 06:59
[2016-09-21] MEDS: APIXABAN 2.5 MG TABLET PO SCH ×2 (11:26→22:29)
[2016-09-21] MEDS: ASPIRIN CHEW 81 MG TABLET PO SCH (11:27)
--- NOTE | 2016-09-21 12:48 | Cardiology Progress Note ---
Assessment and Plan (1) Atrial fibrillation Status: Acute Assessment and plan: 81-year-old female, with history of CAD, status post remote CABG, PAF. She underwent right shoulder surgery approximately a week ago. She is presenting with A. fib RVR, shortness of breath, demand ischemia, severe anemia. Prior history of lower GI bleed due to internal hemorrhoids, no recent recurrence. Anemia is likely due to blood loss related to his recent surgery. -AF. Rate control. Cont Toprol-XL 100 mg twice daily. Hold Cardizem, blood pressure declined after diuresis -Decrease furosemide to 40 mg daily -Anemia. Improved after transfusion. She had demand ischemia. Anemia was due to recent shoulder surgery, blood loss, she also had hematuria, likely due to Crocker injury, resolved. -Anticoagulation. CHADSVASC 5. Eliquis 2.5 mg, aspirin 81 mg daily -If hematuria recurs and limits anticoagulation, urological evaluation may needed. She has a solitary kidney, lost one due to kidney stone -Continue statin. -LVEF preserved. She has moderate PHTN. Mod-severe MR. Once stable, severity of her valvular disease will need to be evaluated, this can be pursued as an outpatient. -Recommend to monitor today, on restarted ASA/Eliquis. If no bleeding, from a cardiac perspective she may be able to go home tomorrow. She will need to follow-up with Dr. Cam Current Visit: Yes (2) Hypertension Status: Chronic Current Visit: Yes (3) Status post shoulder replacement Status: Chronic Current Visit: Yes (4) Anemia Status: Acute Current Visit: Yes (5) Coronary artery disease Status: Chronic Current Visit: Yes (6) History of coronary artery bypass graft Status: Chronic Current Visit: Yes (7) Hyperlipidemia Status: Chronic Current Visit: Yes (8) COPD (chronic obstructive pulmonary disease) Status: Chronic Current Visit: Yes (9) Hematuria Status: Acute Current Visit: Yes (10) Solitary kidney, acquired Status: Acute Current Visit: Yes Cardiology - PN: Subj Interval history: She is feeling better. Hematocrit improved. The blood pressure in normal range. Heart rate well controlled. Exam (Progress Note) - Constitutional Vitals: Period Temp Pulse Resp BP Sys/[place] Pulse Ox Last 24 Hr 96.7 F-98 F 76-104 16-20 115-152/61-76 87-100 General appearance: normal weight, no acute distress, other (Short of breath while talking, this is chronic for her) - Head Head exam: Present: normal inspection, normocephalic - Eye Eye exam: Absent: conjunctival injection Pupils: Absent: dilated - ENT ENT exam: Present: normal external ear exam - Neck Neck exam: Present: normal inspection - Respiratory Respiratory exam: Present: decreased breath sounds, prolonged expiratory phase - Cardiovascular Cardiovascular exam: Present: irregular rhythm, systolic murmur - GI/Abdominal GI/Abdominal exam: Present: normal bowel sounds - Extremities Exam Extremities exam: Present: normal inspection, normal capillary refill, other ( Right upper extremity in sling) - Back Exam Back exam: Present: normal inspection - Neurological Exam Neurological exam: Present: alert, oriented X3 - Psychiatric Psychiatric exam: Present: normal affect, normal mood - Skin Skin exam: Present: normal color, warm. Absent: cyanosis Result/EKG - Labs CBC & BMP: 09/21/16 04:07 09/21/16 04:07 Lab Results: I have reviewed the past 24 hour labs Labs: Laboratory Results - last 24 hr 09/21/16 09/21/16 04:07 04:07 WBC 13.7 H D RBC 4.40 Hgb 12.8 Hct 39.4 MCV 89.5 MCH 29 MCHC 32.5 RDW 16.7 Plt Count 254 D MPV 10.1 Neut % (Auto) 88.5 H Lymph % (Auto) 3.1 L [place] % (Auto) 6.6 Eos % (Auto) 0.0 Baso % (Auto) 0.1 Neut # (Auto) 12.2 H Lymph # (Auto) 0.4 L [place] # (Auto) 0.9 H Eos # (Auto) 0.0 Baso # (Auto) 0.0 Total Counted 100 Immature Gran % 1.7 Nucleated RBC % 0.0 Immature Gran # 0.24 Segmented Neutrophils 93 H Band Neutrophils 2 Lymphocytes 1 L Monocytes 2 Myelocytes 2 Nucleated RBCs # 0.00 Platelet Estimate Normal Anisocytosis 1+ Ovalocytes Few Sodium 135 L Potassium 3.5 Chloride 93 L Carbon Dioxide 30 Anion Gap 15.5 H BUN 40 H D Creatinine 1.60 H GFR Calculation 26 BUN/Creatinine Ratio 25.00 H Glucose 154 H Calculated Osmolality 282.1 Calcium 8.6 - EKG EKG results: interpreted by me
--- NOTE | 2016-09-21 15:14 | Hospitalist Progress Note ---
Assessment and Plan (1) Congestive heart failure Status: Acute Assessment and plan: Echocardiogram 60% diastolic dysfunction 3, change to lasix 40 mg po every day, cont metoprolol Current Visit: Yes (2) Atrial fibrillation Status: Acute Assessment and plan: restart eliquis, cont metoprolol Current Visit: Yes (3) Status post shoulder replacement Status: Chronic Assessment and plan: Recent shoulder replacement Current Visit: Yes (4) Anemia Status: Acute Assessment and plan: protonix bid, stool for occult blood negative Current Visit: Yes (5) Coronary artery disease Status: Chronic Assessment and plan: Serial troponins are positive, cont asa Current Visit: Yes (6) COPD (chronic obstructive pulmonary disease) Status: Chronic Assessment and plan: cont Duonebs, steroids, levaquin Current Visit: Yes (7) Elevated troponin Status: Acute Assessment and plan: cardiology seeing cont asa. Had cabg in past Current Visit: Yes (8) Hematuria Status: Acute Assessment and plan: resolved, could be due to wagner trauma Current Visit: Yes Hospitalist: Subjective Interval history: She is breathing better today. She wanted to Go home but I said it was too early. I have decreased her oxygen to half a liter. Want to keep her sats between 88-91. No more bleeding. Will restart Eliquis and aspirin. Blood pressure little low today we will modify blood pressure medicines. We will change her steroids to p.o. prednisone and IV Lasix to p.o. Exam - Constitutional Vitals: Period Temp Pulse Resp BP Sys/[place] Pulse Ox Last 24 Hr 96.7 F-98 F 76-104 16-20 115-152/61-81 87-100 Exam: Heart Rate-[tachy] Lungs-[very diminished but moving more air GI-[+bs soft, NT] Ext-[no edema] Neuro [Motor 5/5], [alert and oriented times 3] psych [normal mood and affect] General [no acute distress] Results - Labs CBC & BMP: 09/21/16 04:07 09/21/16 04:07 Lab Results: I have reviewed the past 24 hour labs Labs: stool negative for occult blood
[2016-09-21] MEDS: VITAMIN E 1000 UNIT CAPSULE PO SCH (18:21)
[2016-09-21] MEDS: OMEGA 3 ACID ETHYL ESTERS 1 GM CAPSULE PO SCH (18:21)
[2016-09-21] MEDS ORDERED: ISOSORBIDE DINITRATE 10 MG TABLET PO SCH (21:00)
[2016-09-21] MEDS ORDERED: ISOSORBIDE MONONITRATE 20 MG TABLET PO SCH (21:00)
[2016-09-21] MEDS ORDERED: BISACODYL 5 MG TABLET PO PRN (21:46)
[2016-09-21] MEDS: LORATADINE 10 MG TABLET PO SCH (22:28)
[2016-09-21] MEDS: MELATONIN 3 MG TABLET PO SCH (22:29)
[2016-09-21] MEDS: MONTELUKAST 10 MG TABLET PO SCH (22:30)
[2016-09-21] MEDS: EZETIMIBE PO SCH (22:31)
[2016-09-21] MEDS: SIMVASTATIN PO SCH (22:31)
[2016-09-22] MEDS: ALBUTEROL/IPRATROPIUM 3 ML NEB RESP TX SCH ×3 (02:41→10:49)
[2016-09-22 05:22] LABS: Hematocrit 35.4 VOL% (35.7-47.0); Hemoglobin 11.7 GM/DL (12.0-16.0); Immature Granulocytes % 1.6 %; Immature Granulocytes Absolute 0.15 #; Lymphocytes # 0.2 10*3/uL (1.4-4.0); Lymphocytes % 2.4 % (21.3-54.2); Mean Corpuscular HGB Conc 33.1 GM/DL (32-36); Mean Corpuscular Hemoglobin 29 PG (27-34); Mean Corpuscular Volume 88.3 FL (87-102); Mean Platelet Volume 10.2 FL (9.6-12.0); Monocytes # 0.7 10*3/uL (0.11-0.8); Monocytes % 7.8 % (1.7-12.7); Neutrophils # 8.2 10*3/uL (1.4-7.4); Neutrophils % 88.2 % (38.7-73.9); Platelet Count 212 T/CUMM (130-400); Red Blood Count 4.01 MC/CUMM (3.8-5.5); Red Cell Distribution Width 15.9 % (9.3-17.3); White Blood Count 9.3 T/CUMM (4-12)
[2016-09-22 05:53] LABS: Calcium 8.1 MG/DL (8.5-10.1); Potassium 3.5 MMOL/L (3.5-5.1)
[2016-09-22 05:59] LABS: Band Neutrophils 1 % (0-10); Lymphocytes 9 % (20-55); Segmented Neutrophils 86 % (50-85); Total Cells Counted 100
[2016-09-22 06:00] LABS: Platelet Estimate Normal
[2016-09-22 08:15] VITALS: BP 135/69
[2016-09-22] MEDS ORDERED: predniSONE 20 MG TABLET PO SCH (09:00)
[2016-09-22] MEDS: ASPIRIN CHEW 81 MG TABLET PO SCH (09:16)
[2016-09-22] MEDS: APIXABAN 2.5 MG TABLET PO SCH (09:16)
[2016-09-22] MEDS: THYROID 60 MG TABLET PO SCH (09:17)
[2016-09-22] MEDS: DONEPEZIL 10 MG TABLET PO SCH (09:17)
[2016-09-22] MEDS: TOLTERODINE LA 4 MG CAPSULE PO SCH (09:17)
[2016-09-22] MEDS: METOPROLOL SUCCINATE XL 100 MG TABLET PO SCH (09:17)
[2016-09-22] MEDS: FUROSEMIDE 40 MG TABLET PO SCH (09:17)
[2016-09-22] MEDS: BISACODYL 10 MG SUPP RECTAL SCH (09:21)
[2016-09-22] MEDS: MULTIVITAMIN (OCUVITE) TABLET PO SCH (09:22)
[2016-09-22] MEDS: MAGNESIUM CHLORIDE 64 MG TABLET PO SCH (09:23)
[2016-09-22] MEDS: BUDESONIDE/FORMOTEROL 160-4.5 INHALER 6 GM INH SCH (09:23)
[2016-09-22] MEDS: BECLOMETHASONE 40 MCG/PUFF INHALER 8.7 GM INH SCH (09:23)
[2016-09-22] MEDS: PANTOPRAZOLE 40 MG TABLET PO SCH (09:23)
[2016-09-22] MEDS: CHOLECALCIFEROL 1,000 UNIT TABLET PO SCH (09:24)
[2016-09-22] MEDS: CETIRIZINE 10 MG TABLET PO SCH (09:24)
--- NOTE | 2016-09-22 10:05 | Discharge Summary ---
Hospital Course - Hospital Course Hospital Course: 81-year-old female with a history of atrial flutter, hypertension, coronary disease she recently underwent CABG 2 and had a glenohumeral joint replacement on her right arm at [facility]. She did receive some blood while she was at [facility] but did not receive lasix. Patient presented to [facility] for sob and her CXR confirmed she was in chf. Patient was diuresed with IV Lasix. She is currently in atrial fib and Dr. Cam had already started her on Eliquis. Dr. Jo was consulted patient was started on metoprolol XL along with cardiazem. Patient developed severe hematuria with Eliquis with insertion of her wagner. Her Wagner was removed and the bleeding stopped. She was restarted on Eliquis. Patient received 2 units of packed red blood cells on admission for hemoglobin of 8.1. Her hgb has stabilized at 11.7. She has no more bleeding. Dr. Taylor was consulted and her stool was negative for occult blood. No interventions planned by Dr. Taylor. Patient's blood pressure was having a difficult time tolerating all her medications. She is currently only able to tolerate the Toprol-XL at 100 mg twice a day. Her chest CT showed evidence of COPD but no PE but extensive congestive heart failure and possible infiltrates. She was treated with Levaquin IV along with duo nebs and steroids for COPD exacerbation. With respect to her congestive heart failure and she had acute on chronic diastolic congestive heart failure with evidence of moderate pulmonary hypertension. Her EF was 60%. She was gently diuresed with Lasix will go home on a dose of oral Lasix. Patient has stage III renal failure but cannot tolerate an debora or arb due to low blood pressure. Dr. Cam will follow patient on discharge. - Time spent with patient Time with patient DS: Greater than 30 minutes (50 min) Diagnosis - Discharge Diagnosis (1) Congestive heart failure Status: Acute (2) Atrial fibrillation Status: Acute (3) Status post shoulder replacement Status: Chronic (4) Anemia Status: Acute (5) Coronary artery disease Status: Chronic (6) COPD (chronic obstructive pulmonary disease) Status: Chronic (7) Elevated troponin Status: Acute (8) Hematuria Status: Acute Discharge Plan - Discharge Data Disposition: Home Health Service Condition at Discharge: Stable Discharge Diet: heart healthy Activity: resume usual activities as tolerated Hygiene: no restrictions Weight Bearing at Discharge: full weight bearing Driving: not until seen by doctor - Discharge Medications New Albuterol/Ipratropium Neb [Duoneb] 3 ml RESP TX RT Q4H #90 tablet Levofloxacin Tab [Levaquin Tab] 750 mg PO DAILY #7 tablet Metoprolol Succinate Xl [Toprol Xl] 100 mg PO BID #60 tablet predniSONE TAB [PredniSONE] 20 mg PO DAILY #20 tablet Potassium Chloride Cap/Tab [K Dur] 20 meq PO DAILY #30 tablet Continue Aspirin [Ecotrin] 81 mg PO QAM Montelukast Tab [Singulair Tab] 10 mg PO BEDTIME Beclomethasone 40 Mcg Inhaler [Qvar 40 Mcg] 40 mcg INH BID Ezetimibe/Simvastatin 10-80 [Vytorin 10-80] 1 tablet PO BEDTIME Donepezil [Aricept] 10 mg PO QAM Tolterodine LA [Detrol LA] 4 mg PO QAM Thyroid,Pork [[place] Thyroid] 30 mg PO QAM Loratadine [Claritin] 10 mg PO QPM Ipratropium/Albuterol Inhaler [Combivent Respimat Inhaler] 1 puff INH QID Budesonide/Formoterol 160-4.5 [Symbicort 160-4.5] 2 puff INH BID Melatonin 1 mg PO BEDTIME Apixaban [Eliquis] 2.5 mg PO BID Calcium Carbonate/Vitamin D3 [Calcium 600 + Vit D Tablet] 1 each PO QPM Cholecalciferol (Vitamin D3) [Vitamin D3] 5,000 unit PO QAM Magnesium Chloride [Slow Mag] 64 mg PO QAM Mometasone 50 Mcg Nasal [place] [Nasonex Nasal [place]] 2 spray BOTH NARES DAILY PRN PRN Reason: Allergy Symptoms Nitroglycerin Sl Tab [Nitrostat] 0.4 mg SL Q5M PRN PRN Reason: Chest Pain Vitamin E Acetate [Vitamin E] 1,000 unit PO QPM Furosemide Tab [Lasix Tab] 20 mg PO QAM PRN #60 tablet PRN Reason: Edema HYDROcodone/ACETAMIN 7.5-325 [[place] 7.5-325] 1 tablet PO Q8HR PRN #30 tablet PRN Reason: Pain Nitrofurantoin Macrocrystals [Macrodantin] 50 mg PO BEDTIME #0 Levocetirizine Dihydrochloride [Xyzal] 5 mg PO QAM Multivitamin (Ocuvite) [Ocuvite] 1 tablet PO QAM Discontinued Potassium 99 mg PO BID [place]-3 Fatty Acids [Fish Oil] 1,000 mg PO QPM Isosorbide Mononitrate [Isosorbide Mononitrate] 10 mg PO BID Metoprolol Succinate Xl [Toprol Xl] 12.5 mg PO BID Diltiazem Tab [Cardizem Tab] 120 mg PO BID - Follow Up or Referral Follow Up: dr galdino [Other] - 2 Weeks Brenden Taylor MD [Physician] - 1 Month Magdi Flores MD [Physician] - 1 Month Harjeet Cam MD [Physician] - 2 Weeks - Forms/Instructions Additional Discharge Instructions: Nebulizer machine for home. Patient needs saline drops 2 sprays each nostril twice daily as needed this is over-the- counter. Exam - Constitutional Vitals: Period Temp Pulse Resp BP Sys/[place] Pulse Ox Last 24 Hr 97 F-98.0 F 74-124 16-22 114-135/63-84 87-100 General appearance: normal weight, no acute distress - Respiratory Respiratory exam: Present: clear to auscultation bilaterally, decreased breath sounds. Absent: rhonchi, wheezes - Cardiovascular Cardiovascular exam: Present: irregular rhythm. Absent: systolic murmur - GI/Abdominal GI/Abdominal exam: Present: normal bowel sounds, soft. Absent: tenderness - Extremities Exam Extremities exam: Present: normal inspection, normal capillary refill - Neurological Exam Neurological exam: Present: alert, oriented X3 - Psychiatric Psychiatric exam: Present: normal affect, normal mood Discharge Results Procedures and tests throughout hospitalization: Pending Orders 09/19/16 15:55 Occult Blood, Stool Stat 09/20/16 18:58 Occult Blood, Stool Routine 09/23/16 04:00 BMP w/ Mg [Basic Metabolic Panel w/Mg] IN AM CBC [Comp Blood Count Auto Diff] IN AM Labs on day of discharge: Labs from last 24 hours 09/22/16 09/22/16 04:26 04:26 WBC 9.3 D RBC 4.01 Hgb 11.7 L Hct 35.4 L MCV 88.3 MCH 29 MCHC 33.1 RDW 15.9 Plt Count 212 MPV 10.2 Neut % (Auto) 88.2 H Lymph % (Auto) 2.4 L [place] % (Auto) 7.8 Eos % (Auto) 0.0 Baso % (Auto) 0.0 Neut # (Auto) 8.2 H Lymph # (Auto) 0.2 L [place] # (Auto) 0.7 Eos # (Auto) 0.0 Baso # (Auto) 0.0 Total Counted 100 Immature Gran % 1.6 Nucleated RBC % 0.0 Immature Gran # 0.15 Segmented Neutrophils 86 H Band Neutrophils 1 Lymphocytes 9 L Monocytes 4 Nucleated RBCs # 0.00 Platelet Estimate Normal Pappenheimer Bodies Accountant Tax Sodium 136 Potassium 3.5 Chloride 93 L Carbon Dioxide 32 Anion Gap 14.5 BUN 45 H Creatinine 1.50 H GFR Calculation 28 BUN/Creatinine Ratio 30.00 H Glucose 170 H Calculated Osmolality 287.0 Calcium 8.1 L Magnesium 3.0 H DS: Provider Date of admission: 09/18/16 17:56 Primary care physician: . No PCP Attending physician on admission: Taran Luna MD Consults: 09/18/16 19:07 Consult to Physician [CONS] Routine Comment: CHF, elevated troponins Consulting Provider: Froilan Jo Consulting Provider Notified: Yes Consult to Specialist Group: Cardiology Person Notified: JAG Date Notified: 09/19/16 Time Notified: 08:40 09/19/16 09:11 Consult to Physician [CONS] Routine Comment: bleeding on eliquis and asa, afib and cabg Consulting Provider: Brenden Taylor When should Consulting Provider be notified: Now 09/19/16 11:34 Consult to Pastoral Services [CONS] Routine Comment: patient requests Pastoral Screen: Declines Visit 09/19/16 20:48 Consult to Physician [CONS] Routine Comment: Consulting Provider: Soto Bryant When should Consulting Provider be notified: In am 09/21/16 09:07 Consult to Physician [CONS] Routine Comment: copd, multifactorial Consulting Provider: Mike Shultz When should Consulting Provider be notified: Now Discharging clinician: Ros aMaria Wood MD
[2016-09-22] MEDS ORDERED: DILTIAZEM CD 120 MG CAPSULE PO SCH (11:00)
--- NOTE | 2016-09-22 11:01 | Cardiology Progress Note ---
Assessment and Plan (1) Atrial fibrillation Status: Acute Assessment and plan: 81-year-old female, with history of CAD, status post remote CABG, PAF. She underwent right shoulder surgery approximately a week ago. She is presenting with A. fib RVR, shortness of breath, demand ischemia, severe anemia. Prior history of lower GI bleed due to internal hemorrhoids, no recent recurrence. Anemia is likely due to blood loss related to his recent surgery. -AF. Rate control. Cont Toprol-XL 100 mg twice daily. Hypertension was limiting calcium channel nalini. She was diuresed. Once blood pressure recovers, may resume Cardizem CD, 120 mg daily, for better rate control. -Decreased furosemide to 40 mg daily. She is not symptomatic from volume overload. -Anemia. Improved after transfusion. She had demand ischemia. Anemia was due to recent shoulder surgery, blood loss, she also had hematuria, likely due to Crocker injury, resolved. -Anticoagulation. CHADSVASC 5. Eliquis 2.5 mg, aspirin 81 mg daily -Continue statin. -LVEF preserved. She has moderate PHTN. Mod-severe MR. Once stable, severity of her valvular disease will need to be evaluated, this can be pursued as an outpatient. -Follow-up with Dr. Cam. Current Visit: Yes (2) Hypertension Status: Chronic Current Visit: Yes (3) Status post shoulder replacement Status: Chronic Current Visit: Yes (4) Anemia Status: Acute Current Visit: Yes (5) Coronary artery disease Status: Chronic Current Visit: Yes (6) History of coronary artery bypass graft Status: Chronic Current Visit: Yes (7) Hyperlipidemia Status: Chronic Current Visit: Yes (8) COPD (chronic obstructive pulmonary disease) Status: Chronic Current Visit: Yes (9) Hematuria Status: Acute Current Visit: Yes (10) Solitary kidney, acquired Status: Acute Current Visit: Yes Cardiology - PN: Subj Interval history: She is feeling better. Hematocrit improved, no signs of active bleeding. The hematuria resolved, after the Crocker was discontinued. Heart rate is elevated today, in the low 100s, she is not symptomatic. She is ambulating without issues. Exam (Progress Note) - Constitutional Vitals: Period Temp Pulse Resp BP Sys/[place] Pulse Ox Last 24 Hr 97 F-98.0 F 74-124 15-22 114-135/63-84 87-100 General appearance: normal weight, no acute distress - Head Head exam: Present: normal inspection, normocephalic - Eye Eye exam: Absent: conjunctival injection Pupils: Absent: dilated - ENT ENT exam: Present: normal external ear exam - Neck Neck exam: Present: normal inspection - Respiratory Respiratory exam: Present: decreased breath sounds, prolonged expiratory phase - Cardiovascular Cardiovascular exam: Present: irregular rhythm, systolic murmur, tachycardia - GI/Abdominal GI/Abdominal exam: Present: normal bowel sounds - Extremities Exam Extremities exam: Present: normal inspection, normal capillary refill. Absent: edema - Back Exam Back exam: Present: normal inspection - Neurological Exam Neurological exam: Present: alert, oriented X3 - Psychiatric Psychiatric exam: Present: normal affect, normal mood - Skin Skin exam: Present: normal color, warm. Absent: cyanosis Result/EKG - Labs CBC & BMP: 09/22/16 04:26 09/22/16 04:26 Lab Results: I have reviewed the past 24 hour labs Labs: Laboratory Results - last 24 hr 09/22/16 09/22/16 04:26 04:26 WBC 9.3 D RBC 4.01 Hgb 11.7 L Hct 35.4 L MCV 88.3 MCH 29 MCHC 33.1 RDW 15.9 Plt Count 212 MPV 10.2 Neut % (Auto) 88.2 H Lymph % (Auto) 2.4 L [place] % (Auto) 7.8 Eos % (Auto) 0.0 Baso % (Auto) 0.0 Neut # (Auto) 8.2 H Lymph # (Auto) 0.2 L [place] # (Auto) 0.7 Eos # (Auto) 0.0 Baso # (Auto) 0.0 Total Counted 100 Immature Gran % 1.6 Nucleated RBC % 0.0 Immature Gran # 0.15 Segmented Neutrophils 86 H Band Neutrophils 1 Lymphocytes 9 L Monocytes 4 Nucleated RBCs # 0.00 Platelet Estimate Normal Pappenheimer Bodies Nurse Auditor Sodium 136 Potassium 3.5 Chloride 93 L Carbon Dioxide 32 Anion Gap 14.5 BUN 45 H Creatinine 1.50 H GFR Calculation 28 BUN/Creatinine Ratio 30.00 H Glucose 170 H Calculated Osmolality 287.0 Calcium 8.1 L Magnesium 3.0 H - EKG EKG results: interpreted by me Specialty Discharge - Follow Up or Referrals Follow up with: dr galdino [Other] - 2 Weeks Harjeet Cam MD [Physician] - 2 Weeks Brenden Taylor MD [Physician] - 1 Month Magdi Flores MD [Physician] - 1 Month
[2016-09-22] MEDS ORDERED: LEVOFLOXACIN INJ 750 MG in PREMIX 1 EACH IV SCH (21:00)
== END 2016-09-22 13:03 | disposition home health service (06) | DRG 291 ==
LOC: EDUNIT# → EDBD → N.ED 14:22 → N.EDINP 17:56 → SUATTDRO 17:56 → N.TELEN 18:31
PROVIDERS: ADMIT Internal Medicine; ATTEND Internal Medicine

== ENCOUNTER 2017-10-27 17:18 | Inpatient (IN) ==
[2017-10-27] MEDS ORDERED: PANTOPRAZOLE 40 MG VIAL IV STA (17:41)
[2017-10-27] MEDS ORDERED: SODIUM CHLORIDE 0.9% 1,000 ML IV STA (17:41)
[2017-10-27] MEDS ORDERED: ONDANSETRON 4 MG/2 ML VIAL IV STA (17:41)
[2017-10-27] MEDS ORDERED: SODIUM CHLORIDE 0.9% 1,000 ML IV PRN ×2 (17:48→20:10)
[2017-10-27 17:57] LABS: Basophils % 0.3 % (0.0-0.8); Hematocrit 26.2 VOL% (35.7-47.0); Immature Granulocytes % 0.3 %; Immature Granulocytes Absolute 0.02 #; Lymphocytes # 0.7 10*3/uL (1.4-4.0); Lymphocytes % 10.4 % (21.3-54.2); Mean Corpuscular HGB Conc 34.4 GM/DL (32-36); Mean Corpuscular Hemoglobin 31 PG (27-34); Mean Corpuscular Volume 90.7 FL (87-102); Mean Platelet Volume 10.4 FL (9.6-12.0); Monocytes % 14.8 % (1.7-12.7); Neutrophils # 5.1 10*3/uL (1.4-7.4); Neutrophils % 74.2 % (38.7-73.9); Platelet Count 157 T/CUMM (130-400); Red Blood Count 2.89 MC/CUMM (3.8-5.5); Red Cell Distribution Width 13.4 % (9.3-17.3); White Blood Count 6.9 T/CUMM (4-12)
[2017-10-27 18:07] LABS: INR 1.2; PT Patient Result 12.8 SECS; Partial Thromboplastin Time 28.3 SECS (0-40)
[2017-10-27 18:22] LABS: Alanine Aminotransferase 40 U/L (13-56); Albumin 2.4 G/DL (3.4-5.0); Alkaline Phosphatase 211 U/L (45-117); Aspartate Amino Transferase 52 U/L (0-37); Blood Urea Nitrogen 30 MG/DL (7-18); Calcium 7.1 MG/DL (8.5-10.1); Glucose 89 MG/DL (74-106); Osmolality,Calculated 287.1 MOS/KG (273-304); Potassium 4.1 MMOL/L (3.5-5.1); Sodium 142 MMOL/L (136-145); Total Protein 4.4 G/DL (6.4-8.3)
[2017-10-27] MEDS ORDERED: VANCOMYCIN INJ 750 MG in SODIUM CHLORIDE 0.9% 250 ML IV STA (19:42)
[2017-10-27] MEDS ORDERED: CEFEPIME 1,000 MG in SODIUM CHLORIDE 0.9% 100 ML IV STA (19:42)
[2017-10-27] MEDS ORDERED: metroNIDAZOLE INJ 500 MG in PREMIX 1 EACH IV STA (19:42)
[2017-10-27] MEDS ORDERED: ORPHENADRINE 60 MG/2 ML VIAL ONE (19:47)
[2017-10-27] MEDS ORDERED: NOREPINEPHRINE 4 MG/4 ML VIAL IV ONE ×2 (19:48→19:49)
[2017-10-27] MEDS: NOREPINEPHRINE 8 MG in SODIUM CHLORIDE 0.9% 242 ML IV PRN (19:55)
[2017-10-27 20:24] LABS: Lactic Acid 3.3 MMOL/L (0.4-2.0)
[2017-10-27] MEDS ORDERED: MICROFIBRILLAR COLLAGEN POWDER 1 GM CAN TOP ONE (22:15)
[2017-10-27] MEDS ORDERED: HEPARIN/NACL 0.9% 2 UNITS/ML 500 ML IV ONE (22:26)
[2017-10-27] MEDS ORDERED: ONDANSETRON 4 MG/2 ML VIAL IV PRN (22:44)
[2017-10-27] MEDS ORDERED: MORPHINE 4 MG/1 ML VIAL IV PRN (22:44)
[2017-10-27] MEDS: LACTATED RINGERS 1,000 ML IV SCH (23:00)
[2017-10-27] MEDS ORDERED: PROPOFOL 1,000 MG/100 ML BOTTLE IV ONE (23:28)
[2017-10-27] MEDS ORDERED: SEVOFLURANE 1 UNIT/15 MINUTE INH ONE (23:39)
[2017-10-27] MEDS ORDERED: ETOMIDATE 40 MG/20 ML VIAL IV ONE (23:40)
[2017-10-27] MEDS ORDERED: LACTATED RINGERS 2,000 ML IV ONE (23:40)
[2017-10-27] MEDS ORDERED: SUCCINYLCHOLINE 200 MG/10 ML VIAL ONE (23:40)
[2017-10-27] MEDS ORDERED: SODIUM CHLORIDE 0.9% 1,000 ML IV ONE (23:40)
[2017-10-27] MEDS ORDERED: FUROSEMIDE 20 MG/2 ML VIAL ONE (23:40)
[2017-10-27] MEDS ORDERED: ROCURONIUM 100 MG/10 ML VIAL IV ONE (23:40)
[2017-10-27] MEDS ORDERED: fentaNYL 100 MCG/2 ML VIAL ONE (23:40)
[2017-10-27 23:44] LABS: ABG Base Excess -13.1 MMOL/L (-2.5-2.5); ABG HCO3 14.3 MMOL/L (20-26); ABG Oxygen Saturation 99.4 % (95-100); ABG PCO2 31.9 MM HG (35-48); ABG PH 7.234 (7.35-7.45); ABG TCO2 12.3 MMOL/L (23-27); Hematocrit 33.3 VOL% (35.7-47.0); Hemoglobin 11.2 GM/DL (12.0-16.0)
[2017-10-27] MEDS: PROPOFOL 1,000 MG/100 ML BOTTLE IV SCH (23:45)
[2017-10-28] MEDS ORDERED: DIGOXIN 0.5 MG/2 ML AMP IV ONE ×5 (00:30→20:13)
[2017-10-28] MEDS: cefOXitin 2,000 MG in SYRINGE 1 EACH IV SCH ×4 (01:07→19:38)
[2017-10-28] MEDS: MORPHINE 4 MG/1 ML VIAL IV PRN (02:12)
[2017-10-28] MEDS: NOREPINEPHRINE 8 MG in SODIUM CHLORIDE 0.9% 242 ML IV PRN ×3 (02:31→16:43)
[2017-10-28 03:57] LABS: ABG Base Excess -12.7 MMOL/L (-2.5-2.5); ABG HCO3 14.8 MMOL/L (20-26); ABG Oxygen Saturation 99.2 % (95-100); ABG PCO2 29.7 MM HG (35-48); ABG TCO2 11.8 MMOL/L (23-27)
[2017-10-28 04:02] LABS: Basophils % 0.2 % (0.0-0.8); Hematocrit 40.3 VOL% (35.7-47.0); Hemoglobin 13.2 GM/DL (12.0-16.0); Immature Granulocytes % 0.2 %; Immature Granulocytes Absolute 0.02 #; Lymphocytes # 1.8 10*3/uL (1.4-4.0); Mean Corpuscular HGB Conc 32.8 GM/DL (32-36); Mean Corpuscular Hemoglobin 29 PG (27-34); Mean Corpuscular Volume 88.8 FL (87-102); Mean Platelet Volume 10.3 FL (9.6-12.0); Monocytes # 0.6 10*3/uL (0.11-0.8); Monocytes % 7.5 % (1.7-12.7); Neutrophils % 71.1 % (38.7-73.9); Platelet Count 121 T/CUMM (130-400); Red Blood Count 4.54 MC/CUMM (3.8-5.5); White Blood Count 8.5 T/CUMM (4-12)
[2017-10-28] MEDS: LACTATED RINGERS 1,000 ML IV SCH ×4 (04:20→20:37)
[2017-10-28 04:24] LABS: Lactic Acid 5.5 MMOL/L (0.4-2.0)
[2017-10-28 04:27] LABS: Alanine Aminotransferase 33 U/L (13-56); Albumin 1.8 G/DL (3.4-5.0); Alkaline Phosphatase 147 U/L (45-117); Aspartate Amino Transferase 55 U/L (0-37); Blood Urea Nitrogen 26 MG/DL (7-18); Calcium 6.2 MG/DL (8.5-10.1); Glucose 145 MG/DL (74-106); Osmolality,Calculated 288.3 MOS/KG (273-304); Potassium 5.3 MMOL/L (3.5-5.1); Sodium 141 MMOL/L (136-145); Total Protein 3.8 G/DL (6.4-8.3)
[2017-10-28 05:09] LABS: Band Neutrophils 7 % (0-10); Lymphocytes 26 % (20-55); Nucleated Red Blood Cells 1 (0-5); Segmented Neutrophils 61 % (50-85); Total Cells Counted 100
[2017-10-28 05:10] LABS: Burr Cells Slight; Hypochromasia Slight; Ovalocytes Slight; Platelet Estimate Decreased
[2017-10-28] MEDS: PROPOFOL 1,000 MG/100 ML BOTTLE IV SCH (07:04)
[2017-10-28] MEDS ORDERED: AMIODARONE INJ 450 MG in DEXTROSE 5% 241 ML IV SCH (10:00)
[2017-10-28] MEDS: PHENYLEPHRINE DRIP 40 MG/250 ML PREMIX IV PRN (10:15)
[2017-10-28] MEDS ORDERED: MAGNESIUM SULF RIDER 50 ML IV ONE (10:16)
[2017-10-28 11:00] LABS: Basophils % 0.4 % (0.0-0.8); Eosinophils # 0.2 10*3/uL (0.0-0.87); Eosinophils % 2.6 % (0.00-10.9); Hematocrit 34.2 VOL% (35.7-47.0); Hemoglobin 11.4 GM/DL (12.0-16.0); Immature Granulocytes % 0.9 %; Immature Granulocytes Absolute 0.05 #; Lymphocytes # 1.9 10*3/uL (1.4-4.0); Lymphocytes % 34.1 % (21.3-54.2); Mean Corpuscular HGB Conc 33.3 GM/DL (32-36); Mean Corpuscular Hemoglobin 30 PG (27-34); Mean Corpuscular Volume 88.4 FL (87-102); Mean Platelet Volume 10.9 FL (9.6-12.0); Monocytes # 0.5 10*3/uL (0.11-0.8); Monocytes % 9.3 % (1.7-12.7); Neutrophils % 52.7 % (38.7-73.9); Platelet Count 109 T/CUMM (130-400); Red Blood Count 3.87 MC/CUMM (3.8-5.5); Red Cell Distribution Width 15.2 % (9.3-17.3); White Blood Count 5.7 T/CUMM (4-12)
[2017-10-28 11:28] LABS: Albumin 1.2 G/DL (3.4-5.0); Bilirubin,Total 0.5 MG/DL (0.2-1.0); Osmolality,Calculated 295.4 MOS/KG (273-304); Potassium 3.9 MMOL/L (3.5-5.1); Total Protein 3.1 G/DL (6.4-8.3)
[2017-10-28 11:30] LABS: Lactic Acid 7.9 MMOL/L (0.4-2.0)
[2017-10-28 11:43] LABS: Band Neutrophils 4 % (0-10); Eosinophils 1 % (0-10); Hypochromasia 1+; Lymphocytes 35 % (20-55); Metamyelocytes 6 %; Myelocytes 1 %; Segmented Neutrophils 47 % (50-85); Total Cells Counted 100
[2017-10-28 11:44] LABS: Microcytosis 1+; Ovalocytes Few; Platelet Estimate Decreased
[2017-10-28 12:00] LABS: ABG Base Excess -8.8 MMOL/L (-2.5-2.5); ABG HCO3 17.4 MMOL/L (20-26); ABG Oxygen Saturation 99.7 % (95-100); ABG PCO2 30.8 MM HG (35-48); ABG PH 7.326 (7.35-7.45); ABG TCO2 14.4 MMOL/L (23-27)
[2017-10-28] MEDS: fentaNYL INJ 1,250 MCG in SODIUM CHLORIDE 0.9% 225 ML IV PRN (12:12)
[2017-10-28] MEDS: PANTOPRAZOLE 40 MG VIAL IV SCH (12:15)
[2017-10-28] MEDS ORDERED: HEPARIN/NACL 0.9% 2 UNITS/ML 500 ML IV ONE (12:30)
[2017-10-28] MEDS ORDERED: ALBUMIN 25% 25 GM in PREMIX 1 EACH IV ONE (13:03)
[2017-10-28] MEDS ORDERED: CALCIUM GLUCONATE 1,000 MG in SODIUM CHLORIDE 0.9% 100 ML IV ONE (13:30)
[2017-10-28] MEDS: HEPARIN/NACL 0.9% 2 UNITS/ML 500 ML IV SCH (13:32)
[2017-10-28] MEDS ORDERED: LACTATED RINGERS 1,000 ML IV ONE (14:06)
[2017-10-28 16:28] LABS: Lactic Acid 5.1 MMOL/L (0.4-2.0)
[2017-10-28] MEDS ORDERED: CALCIUM GLUCONATE 2,000 MG in SODIUM CHLORIDE 0.9% 100 ML IV ONE (18:04)
[2017-10-28 20:14] LABS: Lactic Acid 4.2 MMOL/L (0.4-2.0)
[2017-10-28] MEDS: SODIUM CHLORIDE 23.4% CONC INJ 38.5 MEQ, SODIUM BICARB INJ 100 MEQ in STERILE WATER INJ... IV SCH (20:34)
[2017-10-29 00:34] LABS: Lactic Acid 2.6 MMOL/L (0.4-2.0)
[2017-10-29] MEDS: cefOXitin 2,000 MG in SYRINGE 1 EACH IV SCH ×4 (00:48→17:16)
[2017-10-29] MEDS: LACTATED RINGERS 1,000 ML IV SCH (00:51)
[2017-10-29] MEDS: PROPOFOL 1,000 MG/100 ML BOTTLE IV SCH ×2 (03:24→21:35)
[2017-10-29] MEDS: SODIUM CHLORIDE 23.4% CONC INJ 38.5 MEQ, SODIUM BICARB INJ 100 MEQ in STERILE WATER INJ... IV SCH ×4 (03:25→21:00)
[2017-10-29 03:57] LABS: ABG HCO3 23.6 MMOL/L (20-26); ABG Oxygen Saturation 99.6 % (95-100); ABG PCO2 35.8 MM HG (35-48); ABG PH 7.419 (7.35-7.45); ABG TCO2 21.3 MMOL/L (23-27)
[2017-10-29 04:04] LABS: Basophils % 0.6 % (0.0-0.8); Eosinophils # 0.1 10*3/uL (0.0-0.87); Eosinophils % 2.8 % (0.00-10.9); Hematocrit 26.1 VOL% (35.7-47.0); Hemoglobin 9.1 GM/DL (12.0-16.0); Immature Granulocytes % 1.1 %; Immature Granulocytes Absolute 0.04 #; Lymphocytes # 0.6 10*3/uL (1.4-4.0); Lymphocytes % 17.1 % (21.3-54.2); Mean Corpuscular HGB Conc 34.9 GM/DL (32-36); Mean Corpuscular Hemoglobin 30 PG (27-34); Mean Corpuscular Volume 85.9 FL (87-102); Mean Platelet Volume 11.3 FL (9.6-12.0); Monocytes # 0.3 10*3/uL (0.11-0.8); Monocytes % 7.1 % (1.7-12.7); Neutrophils # 2.5 10*3/uL (1.4-7.4); Neutrophils % 71.3 % (38.7-73.9); Platelet Count 93 T/CUMM (130-400); Red Blood Count 3.04 MC/CUMM (3.8-5.5); Red Cell Distribution Width 15.2 % (9.3-17.3); White Blood Count 3.5 T/CUMM (4-12)
[2017-10-29 04:29] LABS: Calcium 7.2 MG/DL (8.5-10.1); Osmolality,Calculated 285.1 MOS/KG (273-304); Potassium 4.2 MMOL/L (3.5-5.1)
[2017-10-29 05:10] LABS: Band Neutrophils 52 % (0-10); Lymphocytes 16 % (20-55); Metamyelocytes 6 %; Segmented Neutrophils 14 % (50-85); Total Cells Counted 100
[2017-10-29 05:12] LABS: Anisocytosis 1+; Poikilocytosis 1+
[2017-10-29] MEDS: NOREPINEPHRINE 8 MG in SODIUM CHLORIDE 0.9% 242 ML IV PRN (06:35)
[2017-10-29] MEDS ORDERED: SODIUM CHLORIDE 23.4% CONC INJ 38.5 MEQ, SODIUM BICARB INJ 100 MEQ in STERILE WATER INJ... IV SCH (07:00)
[2017-10-29] MEDS: fentaNYL INJ 1,250 MCG in SODIUM CHLORIDE 0.9% 225 ML IV PRN (08:05)
[2017-10-29] MEDS: PANTOPRAZOLE 40 MG VIAL IV SCH (09:40)
[2017-10-29] MEDS: MORPHINE 4 MG/1 ML VIAL IV PRN (10:18)
[2017-10-29] MEDS: HEPARIN/NACL 0.9% 2 UNITS/ML 500 ML IV SCH (13:50)
[2017-10-29 14:31] LABS: Hematocrit 22.6 VOL% (35.7-47.0); Hemoglobin 7.8 GM/DL (12.0-16.0)
[2017-10-29] MEDS ORDERED: SODIUM CHLORIDE 0.9% 1,000 ML IV PRN (14:51)
[2017-10-30] MEDS: cefOXitin 2,000 MG in SYRINGE 1 EACH IV SCH ×4 (01:00→18:07)
[2017-10-30] MEDS: fentaNYL INJ 1,250 MCG in SODIUM CHLORIDE 0.9% 225 ML IV PRN (04:21)
[2017-10-30] MEDS: SODIUM CHLORIDE 23.4% CONC INJ 38.5 MEQ, SODIUM BICARB INJ 100 MEQ in STERILE WATER INJ... IV SCH ×4 (04:34→18:32)
[2017-10-30 05:32] LABS: ABG HCO3 32.7 MMOL/L (20-26); ABG PCO2 38.6 MM HG (35-48); ABG PH 7.531 (7.35-7.45); ABG PO2 78.6 MM HG (80-95); ABG TCO2 28.7 MMOL/L (23-27)
[2017-10-30 05:51] LABS: Basophils % 0.6 % (0.0-0.8); Eosinophils # 0.2 10*3/uL (0.0-0.87); Eosinophils % 3.2 % (0.00-10.9); Hematocrit 32.3 VOL% (35.7-47.0); Hemoglobin 11.3 GM/DL (12.0-16.0); Immature Granulocytes % 8.5 %; Immature Granulocytes Absolute 0.43 #; Lymphocytes # 0.5 10*3/uL (1.4-4.0); Lymphocytes % 9.7 % (21.3-54.2); Mean Corpuscular Hemoglobin 30 PG (27-34); Mean Corpuscular Volume 85.9 FL (87-102); Mean Platelet Volume 11.3 FL (9.6-12.0); Monocytes # 0.4 10*3/uL (0.11-0.8); Monocytes % 6.9 % (1.7-12.7); Neutrophils # 3.6 10*3/uL (1.4-7.4); Neutrophils % 71.1 % (38.7-73.9); Platelet Count 72 T/CUMM (130-400); Red Blood Count 3.76 MC/CUMM (3.8-5.5); Red Cell Distribution Width 14.1 % (9.3-17.3); White Blood Count 5.1 T/CUMM (4-12)
[2017-10-30 06:04] LABS: Calcium 6.4 MG/DL (8.5-10.1); Osmolality,Calculated 274.8 MOS/KG (273-304); Potassium 3.3 MMOL/L (3.5-5.1)
[2017-10-30 06:16] LABS: Band Neutrophils 3 % (0-10); Eosinophils 3 % (0-10); Lymphocytes 12 % (20-55); Platelet Estimate Decreased; Segmented Neutrophils 70 % (50-85); Total Cells Counted 100
[2017-10-30 06:18] LABS: Hypochromasia 1+; Microcytosis Slight
[2017-10-30] MEDS: DEXTROSE 50% 25 GM/50 ML VIAL IV PRN ×2 (07:05→16:34)
[2017-10-30] MEDS ORDERED: SODIUM CHLORIDE 0.9% 1,000 ML IV ONE (07:08)
[2017-10-30] MEDS ORDERED: ALBUMIN 25% 25 GM in PREMIX 1 EACH IV ONE (07:08)
[2017-10-30] MEDS ORDERED: DEXTROSE 50% 25 GM/50 ML VIAL IV ONE (07:09)
[2017-10-30] MEDS ORDERED: CALCIUM GLUCONATE 2,000 MG in SODIUM CHLORIDE 0.9% 100 ML IV ONE ×2 (07:19→17:00)
[2017-10-30] MEDS ORDERED: MICROFIBRILLAR COLLAGEN POWDER 1 GM CAN TOP ONE (09:44)
[2017-10-30] MEDS ORDERED: MAGNESIUM SULF RIDER 4 GM in PREMIX 1 EACH IV PRN (09:48)
[2017-10-30] MEDS ORDERED: MAGNESIUM SULF RIDER 2 GM in PREMIX 1 EACH IV PRN (09:48)
[2017-10-30] MEDS ORDERED: PHENYLEPHRINE 1 MG/10 ML SYRINGE IV ONE (10:53)
[2017-10-30] MEDS ORDERED: ALBUMIN 5% 12.5 GM/250 ML VIAL IV ONE (10:53)
[2017-10-30] MEDS ORDERED: ESMOLOL 100 MG/10 ML VIAL IV ONE (10:53)
[2017-10-30] MEDS ORDERED: ROCURONIUM 100 MG/10 ML VIAL IV ONE (10:53)
[2017-10-30] MEDS ORDERED: SEVOFLURANE 1 UNIT/15 MINUTE INH ONE (10:53)
[2017-10-30] MEDS: PANTOPRAZOLE 40 MG VIAL IV SCH (11:45)
[2017-10-30 12:12] LABS: Hematocrit 21.1 VOL% (35.7-47.0); Hemoglobin 7.3 GM/DL (12.0-16.0)
[2017-10-30 12:23] LABS: INR 1.3
[2017-10-30 12:30] LABS: Partial Thromboplastin Time 47.1 SECS (0-40)
[2017-10-30] MEDS: PROPOFOL 1,000 MG/100 ML BOTTLE IV SCH ×2 (13:31→23:33)
[2017-10-30] MEDS: HEPARIN/NACL 0.9% 2 UNITS/ML 500 ML IV SCH (14:52)
[2017-10-30] MEDS ORDERED: CALCIUM GLUCONATE 2,000 MG in SODIUM CHLORIDE 0.9% 100 ML IV PRN (19:49)
[2017-10-31] MEDS: cefOXitin 2,000 MG in SYRINGE 1 EACH IV SCH ×5 (00:30→23:57)
[2017-10-31 03:10] LABS: ABG Base Excess 10.8 MMOL/L (-2.5-2.5); ABG HCO3 34.5 MMOL/L (20-26); ABG Oxygen Saturation 97.8 % (95-100); ABG PCO2 48.7 MM HG (35-48); ABG PH 7.473 (7.35-7.45); ABG PO2 92.5 MM HG (80-95); ABG TCO2 33.6 MMOL/L (23-27)
[2017-10-31 03:19] LABS: Basophils % 0.4 % (0.0-0.8); Eosinophils # 0.4 10*3/uL (0.0-0.87); Eosinophils % 6.5 % (0.00-10.9); Hematocrit 19.9 VOL% (35.7-47.0); Hemoglobin 6.9 GM/DL (12.0-16.0); Immature Granulocytes % 0.9 %; Immature Granulocytes Absolute 0.05 #; Lymphocytes # 0.4 10*3/uL (1.4-4.0); Lymphocytes % 7.1 % (21.3-54.2); Mean Corpuscular HGB Conc 34.7 GM/DL (32-36); Mean Corpuscular Hemoglobin 30 PG (27-34); Monocytes # 0.5 10*3/uL (0.11-0.8); NRBC # 0.02 10*3/uL; Neutrophils # 4.1 10*3/uL (1.4-7.4); Neutrophils % 75.1 % (38.7-73.9); Platelet Count 109 T/CUMM (130-400); Red Blood Count 2.34 MC/CUMM (3.8-5.5); Red Cell Distribution Width 15.1 % (9.3-17.3); White Blood Count 5.4 T/CUMM (4-12)
[2017-10-31 03:41] LABS: Platelet Estimate Decreased
[2017-10-31 04:02] LABS: Calcium 7.2 MG/DL (8.5-10.1); Osmolality,Calculated 278.5 MOS/KG (273-304); Potassium 2.9 MMOL/L (3.5-5.1)
[2017-10-31] MEDS: SODIUM CHLORIDE 23.4% CONC INJ 38.5 MEQ, SODIUM BICARB INJ 100 MEQ in STERILE WATER INJ... IV SCH ×3 (05:11→10:57)
[2017-10-31] MEDS: POTASSIUM CHLORIDE RIDER 20 MEQ in PREMIX 1 EACH IV PRN ×4 (06:00→20:07)
[2017-10-31 06:14] LABS: Hematocrit 24.7 VOL% (35.7-47.0); Hemoglobin 8.3 GM/DL (12.0-16.0)
[2017-10-31 08:21] LABS: Basophils % 0.4 % (0.0-0.8); Eosinophils # 0.4 10*3/uL (0.0-0.87); Eosinophils % 5.5 % (0.00-10.9); Hematocrit 24.5 VOL% (35.7-47.0); Hemoglobin 8.1 GM/DL (12.0-16.0); Immature Granulocytes Absolute 0.07 #; Lymphocytes # 0.4 10*3/uL (1.4-4.0); Lymphocytes % 5.4 % (21.3-54.2); Mean Corpuscular HGB Conc 33.1 GM/DL (32-36); Mean Corpuscular Hemoglobin 28 PG (27-34); Mean Platelet Volume 10.1 FL (9.6-12.0); Monocytes # 0.7 10*3/uL (0.11-0.8); Monocytes % 10.2 % (1.7-12.7); Neutrophils # 5.6 10*3/uL (1.4-7.4); Neutrophils % 77.5 % (38.7-73.9); Platelet Count 102 T/CUMM (130-400); Red Blood Count 2.85 MC/CUMM (3.8-5.5); Red Cell Distribution Width 16.2 % (9.3-17.3); White Blood Count 7.2 T/CUMM (4-12)
[2017-10-31 08:45] LABS: Osmolality,Calculated 276.7 MOS/KG (273-304); Potassium 3.3 MMOL/L (3.5-5.1)
[2017-10-31] MEDS: PANTOPRAZOLE 40 MG VIAL IV SCH (08:52)
[2017-10-31 08:53] LABS: Anisocytosis 1+; Band Neutrophils 46 % (0-10); Eosinophils 11 % (0-10); Lymphocytes 6 % (20-55); Metamyelocytes 1 %; Platelet Estimate Adequate; Segmented Neutrophils 29 % (50-85); Total Cells Counted 100
[2017-10-31] MEDS: POTASSIUM CHLORIDE RIDER 10 MEQ in PREMIX 1 EACH IV PRN ×2 (08:59→22:12)
[2017-10-31] MEDS: PROPOFOL 1,000 MG/100 ML BOTTLE IV SCH ×2 (09:06→17:38)
[2017-10-31] MEDS ORDERED: SODIUM CHLORIDE 0.9% 1,000 ML IV PRN (09:29)
[2017-10-31 11:35] LABS: ABG Base Excess 10.7 MMOL/L (-2.5-2.5); ABG HCO3 34.3 MMOL/L (20-26); ABG Oxygen Saturation 93.8 % (95-100); ABG PCO2 52.8 MM HG (35-48); ABG PH 7.446 (7.35-7.45); ABG PO2 67.4 MM HG (80-95); ABG TCO2 33.4 MMOL/L (23-27)
[2017-10-31] MEDS ORDERED: GLUCAGON 1 MG VIAL IM PRN (12:20)
[2017-10-31] MEDS ORDERED: FUROSEMIDE 20 MG/2 ML VIAL IV ONE (12:29)
[2017-10-31 12:52] LABS: ABG Base Excess 9.9 MMOL/L (-2.5-2.5); ABG HCO3 33.5 MMOL/L (20-26); ABG PCO2 40.9 MM HG (35-48); ABG PH 7.531 (7.35-7.45); ABG PO2 98.6 MM HG (80-95); ABG TCO2 34.7 MMOL/L (23-27)
[2017-10-31] MEDS: METOPROLOL TARTRATE 25 MG TABLET PO SCH (16:10)
[2017-10-31] MEDS: DEXTROSE 50% 25 GM/50 ML VIAL IV PRN (16:11)
[2017-10-31] MEDS: TRACE ELEMENTS IV SCH (16:52)
[2017-10-31] MEDS: [UNRECOGNIZED DRUG - OTHER] IV SCH (16:52)
[2017-10-31] MEDS: MULTIVITAMIN IV SCH (16:52)
[2017-10-31] MEDS: ELECTROLYTE IV SCH (16:52)
[2017-10-31 16:57] LABS: Hematocrit 34.6 VOL% (35.7-47.0); Hemoglobin 11.8 GM/DL (12.0-16.0)
[2017-10-31] MEDS ORDERED: DEXTROSE 10% 1,000 ML IV PRN (17:00)
[2017-10-31 17:13] LABS: INR 1.1
[2017-10-31] MEDS: INSULIN REGULAR 100 UNIT/ML SUBCUT SCH ×2 (17:37→23:57)
[2017-11-01] MEDS: fentaNYL INJ 1,250 MCG in SODIUM CHLORIDE 0.9% 225 ML IV PRN ×2 (01:28→21:07)
[2017-11-01] MEDS: PROPOFOL 1,000 MG/100 ML BOTTLE IV SCH ×4 (01:30→18:19)
[2017-11-01] MEDS: POTASSIUM CHLORIDE RIDER 20 MEQ in PREMIX 1 EACH IV PRN ×3 (02:08→11:22)
[2017-11-01 03:26] LABS: ABG Base Excess 8.1 MMOL/L (-2.5-2.5); ABG HCO3 31.9 MMOL/L (20-26); ABG Oxygen Saturation 99.1 % (95-100); ABG PCO2 37.5 MM HG (35-48); ABG PH 7.529 (7.35-7.45); ABG TCO2 27.7 MMOL/L (23-27); Basophils # 0.1 10*3/uL (0.0-0.2); Basophils % 0.6 % (0.0-0.8); Eosinophils # 0.3 10*3/uL (0.0-0.87); Eosinophils % 2.3 % (0.00-10.9); Hematocrit 31.1 VOL% (35.7-47.0); Hemoglobin 11.2 GM/DL (12.0-16.0); Immature Granulocytes % 3.7 %; Immature Granulocytes Absolute 0.43 #; Lymphocytes # 0.5 10*3/uL (1.4-4.0); Lymphocytes % 4.1 % (21.3-54.2); Mean Corpuscular Hemoglobin 30 PG (27-34); Mean Corpuscular Volume 83.4 FL (87-102); Mean Platelet Volume 11.3 FL (9.6-12.0); Monocytes # 0.7 10*3/uL (0.11-0.8); Monocytes % 5.7 % (1.7-12.7); NRBC # 0.03 10*3/uL; Neutrophils # 9.7 10*3/uL (1.4-7.4); Neutrophils % 83.6 % (38.7-73.9); Platelet Count 74 T/CUMM (130-400); Red Blood Count 3.73 MC/CUMM (3.8-5.5); Red Cell Distribution Width 15.8 % (9.3-17.3); White Blood Count 11.7 T/CUMM (4-12)
[2017-11-01 03:41] LABS: Calcium 6.7 MG/DL (8.5-10.1); Osmolality,Calculated 286.8 MOS/KG (273-304); Potassium 3.6 MMOL/L (3.5-5.1)
[2017-11-01 03:46] LABS: Prealbumin 4.8 MG/DL (20-40)
[2017-11-01] MEDS: INSULIN REGULAR 100 UNIT/ML SUBCUT SCH ×4 (05:38→23:32)
[2017-11-01] MEDS: cefOXitin 2,000 MG in SYRINGE 1 EACH IV SCH ×4 (05:39→23:32)
[2017-11-01] MEDS: ALBUMIN 25% 25 GM in PREMIX 1 EACH IV SCH ×2 (08:53→20:08)
[2017-11-01] MEDS: METOPROLOL TARTRATE 25 MG TABLET PO SCH (08:53)
[2017-11-01] MEDS: PANTOPRAZOLE 40 MG VIAL IV SCH (08:53)
[2017-11-01] MEDS: FUROSEMIDE 40 MG/4 ML VIAL IV SCH ×2 (10:02→21:04)
[2017-11-01] MEDS ORDERED: INSULIN REGULAR IV SCH (17:00)
[2017-11-01] MEDS ORDERED: MULTIVITAMIN IV SCH (17:00)
[2017-11-01] MEDS ORDERED: TRACE ELEMENTS IV SCH (17:00)
[2017-11-01] MEDS ORDERED: [UNRECOGNIZED DRUG - OTHER] IV SCH (17:00)
[2017-11-01] MEDS: TRACE ELEMENTS IV SCH (18:17)
[2017-11-01] MEDS: [UNRECOGNIZED DRUG - OTHER] IV SCH (18:17)
[2017-11-01] MEDS: MULTIVITAMIN IV SCH (18:17)
[2017-11-01] MEDS: ELECTROLYTE IV SCH (18:17)
[2017-11-01] MEDS ORDERED: METOPROLOL TARTRATE 25 MG TABLET PO ONE (22:30)
[2017-11-01] MEDS: PHENYLEPHRINE DRIP 40 MG/250 ML PREMIX IV PRN (23:33)
[2017-11-02] MEDS: PROPOFOL 1,000 MG/100 ML BOTTLE IV SCH ×2 (00:31→01:55)
[2017-11-02 01:49] LABS: ABG Base Excess -2.3 MMOL/L (-2.5-2.5); ABG HCO3 22.4 MMOL/L (20-26); ABG Oxygen Saturation 90.8 % (95-100); ABG PH 7.324 (7.35-7.45); ABG PO2 63.9 MM HG (80-95); ABG TCO2 21.8 MMOL/L (23-27)
[2017-11-02 02:04] LABS: Calcium 7.5 MG/DL (8.5-10.1); Potassium 4.3 MMOL/L (3.5-5.1)
[2017-11-02 02:26] LABS: Basophils # 0.1 10*3/uL (0.0-0.2); Basophils % 0.4 % (0.0-0.8); Eosinophils # 0.7 10*3/uL (0.0-0.87); Eosinophils % 3.1 % (0.00-10.9); Hematocrit 32.1 VOL% (35.7-47.0); Hemoglobin 10.6 GM/DL (12.0-16.0); Immature Granulocytes % 8.2 %; Immature Granulocytes Absolute 1.76 #; Lymphocytes # 2.1 10*3/uL (1.4-4.0); Mean Corpuscular Hemoglobin 30 PG (27-34); Mean Corpuscular Volume 89.7 FL (87-102); Mean Platelet Volume 9.3 FL (9.6-12.0); Monocytes # 0.5 10*3/uL (0.11-0.8); Monocytes % 2.5 % (1.7-12.7); NRBC # 0.13 10*3/uL; Neutrophils # 16.2 10*3/uL (1.4-7.4); Neutrophils % 75.8 % (38.7-73.9); Red Blood Count 3.58 MC/CUMM (3.8-5.5); Red Cell Distribution Width 16.7 % (9.3-17.3); White Blood Count 21.4 T/CUMM (4-12)
[2017-11-02 02:31] LABS: Platelet Count 16 T/CUMM (130-400)
[2017-11-02 02:35] LABS: Band Neutrophils 4 % (0-10); Lymphocytes 15 % (20-55); Platelet Estimate Decreased; Segmented Neutrophils 75 % (50-85); Total Cells Counted 100
[2017-11-02] MEDS ORDERED: SODIUM CHLORIDE 0.9% 1,000 ML IV PRN (02:41)
[2017-11-02] MEDS: PHENYLEPHRINE DRIP 40 MG/250 ML PREMIX IV PRN ×2 (03:28→05:27)
[2017-11-02] MEDS ORDERED: DILTIAZEM 50 MG/10 ML VIAL IV ONE (03:52)
[2017-11-02] MEDS ORDERED: DILTIAZEM 25 MG/5 ML VIAL IV ONE (03:55)
[2017-11-02] MEDS ORDERED: DILTIAZEM 100 MG VIAL.ADD IV ONE (03:56)
[2017-11-02] MEDS ORDERED: SODIUM CHLORIDE 0.9% 100 ML IV ONE (03:57)
[2017-11-02] MEDS ORDERED: DILTIAZEM INJ 100 MG in SODIUM CHLORIDE 0.9% 100 ML IV SCH (04:00)
[2017-11-02] MEDS: NOREPINEPHRINE 8 MG in SODIUM CHLORIDE 0.9% 242 ML IV PRN (04:05)
[2017-11-02] MEDS ORDERED: FAMOTIDINE 20 MG/2 ML VIAL IV SCH (04:30)
[2017-11-02] MEDS: INSULIN REGULAR 100 UNIT/ML SUBCUT SCH (05:16)
[2017-11-02] MEDS: cefOXitin 2,000 MG in SYRINGE 1 EACH IV SCH (05:19)
[2017-11-02] MEDS: DEXTROSE 50% 25 GM/50 ML VIAL IV PRN (05:49)
[2017-11-02 06:03] VITALS: BP 114/35
[2017-11-02] MEDS ORDERED: cefOXitin 2,000 MG in SYRINGE 1 EACH IV SCH (17:30)
[2017-11-04 17:41] LABS: HIT Interpretation Negative (Negative)
== END 2017-11-02 06:44 | disposition expired | DRG 853 ==
LOC: EDUNIT# → EDBD → N.ED 17:18 → N.ICU 22:44 → N.ED 23:38 → N.ICU 23:51
PROVIDERS: ADMIT Surgery; ATTEND Surgery